=== PATIENT | male | born 1965 | race Caucasian/White ===

== ENCOUNTER 2016-12-02 17:47 | Emergency (ER) | payer OTHER ==
[~2016-12-02] VITALS: Ht 193 cm; Wt 100.0 kg
[~2016-12-02 17:47] MED LIST: ALPR1TAB3 PO; ATEN25TA PO; BACT800T5 PO; CEPH250C PO; CYAN1000P SQ; DEPA500T3 PO
[2016-12-02 17:52] VITALS: BP 131/86; PULSE 90; RESP 16; TEMP 97.7; O2SAT 96
== END 2016-12-02 20:32 | disposition left against medical advice (07) ==
LOC: NED 17:47
DX: R10.9 Unspecified abdominal pain (principal); Z53.21 Procedure and treatment not carried out due to patient leaving prior to being seen by health care provider
CPT/HCPCS: 99281

== ENCOUNTER 2016-12-03 12:27 | Inpatient (IN) | payer OTHER ==
[~2016-12-03] VITALS: Ht 193 cm; Wt 102.0 kg
[2016-12-03] VITALS (7 sets, daily range): BP systolic 93–140; BP diastolic 62–78; PULSE 74–118; RESP 15–18; TEMP 98.7; O2SAT 93–96
[2016-12-03] MEDS ORDERED: PIPERACIL-TAZO 4.5 GM PREMIX 100 ML IV STA (14:24)
[2016-12-03] MEDS ORDERED: ONDANSETRON HCL 4 MG/2 ML VIAL IV PUSH ONE (14:45)
[2016-12-03] MEDS ORDERED: HYDROmorphone HCL PF 1 MG/ML VIAL IV PUSH ONE (14:45)
[2016-12-03 15:00] LABS: BASOPHIL # 0.1 TH/MM3 (0-0.2); BASOPHIL % 0.6 % (0.0-2.0); EOSINOPHIL % 0.2 % (0.0-4.0); HEMATOCRIT 43.3 % (39.0-51.0); LYMPH % 14.2 % (9.0-44.0); LYMPHOCYTE # 2.2 TH/MM3 (1.0-4.8); MEAN CELL VOLUME 91.6 FL (80.0-100.0); MEAN CORPUSCULAR HEMOGLOBIN 31.1 PG (27.0-34.0); MEAN CORPUSCULAR HGB CONC 33.9 % (32.0-36.0); MONO % 7.7 % (0.0-8.0); NEUT % 77.3 % (16.0-70.0); PLATELET COUNT 203 TH/MM3 (150-450); RED BLOOD COUNT 4.73 MIL/MM3 (4.50-5.90); RED CELL DISTRIBUTION WIDTH 13.1 % (11.6-17.2); WHITE BLOOD COUNT 15.6 TH/MM3 (4.0-11.0)
[2016-12-03 15:03] LABS: HEMO FLAGS DIFF FINAL
[2016-12-03 15:20] LABS: ALT (GPT) 18 U/L (12-78); ANION GAP 5 MEQ/L (5-15); AST (GOT) 10 U/L (15-37); BICARBONATE 30.6 MEQ/L (21.0-32.0); BLOOD UREA NITROGEN 14 MG/DL (7-18); CHLORIDE 102 MEQ/L (98-107); GLOMERULAR FILTRATION RATE 50 ML/MIN (>89); POTASSIUM 4.6 MEQ/L (3.5-5.1); SODIUM (NA) 138 MEQ/L (136-145)
[2016-12-03 15:23] LABS: ALKALINE PHOSPHATASE 50 U/L (45-117); TOTAL BILIRUBIN ADULT 0.4 MG/DL (0.2-1.0)
--- NOTE | 2016-12-03 15:37 | PD ---
HPI Chief Complaint: Wound/Suture/Staple Re-Check Time Seen by Provider: 14:24 Travel History International Travel<30 days: No Contact w/Intl Traveler<30days: No Traveled to known affect area: No History of Present Illness HPI 51-year-old male with history of right inguinal hernia surgery by Dr. Robert on 11/05, presents to the ER today because he was sent in by Dr. Robert, has been having swelling in his right inguinal area where the surgery had been done, has serosanguineous fluid draining from it, apparently had been seen in clinic yesterday. His patient's states he has been having increased pain and has had fevers of 102 at home today. Modifying Factors: None Associated Signs & Symptoms: Right inguinal hernia repair, increased swelling, drainage, fevers Risk Factors: None PFSH Past Medical History Anxiety: Yes Cardiovascular Problems: Yes (htn) Cerebrovascular Accident: Yes (CVA 2009) Diminished Hearing: No Hypertension: Yes Seizures: Yes Influenza Vaccination: Yes Past Surgical History Abdominal Surgery: Yes (INGUINAL HERNIORRHAPHY x6) Appendectomy: Yes Genitourinary Surgery: Yes (ORCHIECTOMY) Other Surgery: Yes (TESTICULAR SX) Social History Alcohol Use: No Tobacco Use: No Substance Use: No Allergies-Medications (Allergen,Severity, Reaction): Coded Allergies: Toradol (Verified Allergy, Severe, 12/03/16) Codeine (Verified Allergy, Unknown, 12/03/16) Tramadol (Verified Allergy, Unknown, 12/03/16) Reported Meds & Prescriptions Reported Meds & Active Scripts Active Bactrim DS (Sulfamethoxazole-Trimethoprim) 800-160 Mg Tab 1 Tab PO BID Cephalexin 250 Mg Cap 500 Mg PO Q6H Take 500mg q6h by mouth for 10 days total Reported Depakote ER (Divalproex Sodium) 500 Mg Edyta 1,000 Mg PO BID Cyanocobalamin Inj (Cyanocobalamin) 1,000 Mcg/Ml Inj 1,000 Mcg SQ ON OF EA MONTH Cyanocobalamin Inj (Cyanocobalamin) 1,000 Mcg/Ml Inj 1,000 Mcg SQ 10TH OF EACH MONTH Cyanocobalamin Inj (Cyanocobalamin) 1,000 Mcg/Ml Inj 1,000 Mcg SQ 1ST OF EVERY MONTH Atenolol 25 Mg Tab 25 Mg PO BID Alprazolam 1 Mg Tab 2 Mg PO BID PRN Review of Systems Except as stated in HPI: all other systems reviewed are Neg Physical Exam Narrative GENERAL: Well-nourished, well-developed middle-aged white male patient in no acute distress at rest. SKIN: Warm and dry. HEAD: Normocephalic. EYES: No scleral icterus. No injection or drainage. NECK: Supple, trachea midline. CARDIOVASCULAR: Regular rate and rhythm without murmurs, gallops, or rubs. RESPIRATORY: Breath sounds equal bilaterally. No accessory muscle use. GASTROINTESTINAL: Abdomen soft, non-tender, nondistended. GENITOURINARY: There is significant edema and fluctuance notable at the right inguinal area extending to the right scrotum, notable serosanguineous fluid drainage from the right scrotum, tender to palpation. MUSCULOSKELETAL: No cyanosis, or edema. BACK: Nontender without obvious deformity. No CVA tenderness. Data Data Last Documented VS Vital Signs Date Time Temp Pulse Resp B/P Pulse Ox O2 Delivery O2 Flow Rate FiO2 12/03/16 14:35 16 94 Room Air 12/03/16 12:29 98.7 118 114/75 Orders Complete Blood Count With Diff (12/03/16 14:24) Comprehensive Metabolic Panel (12/03/16 14:24) Lactic Acid Sepsis Protocol (12/03/16 14:24) Blood Culture (12/03/16 14:24) Wound Culture And Gram Stain (12/03/16 14:24) Blood Glucose (12/03/16 14:24) Ecg Monitoring (12/03/16 14:24) Iv Access Insert/Monitor (12/03/16 14:24) Oximetry (12/03/16 14:24) Oxygen Administration (12/03/16 14:24) Piperacil-Tazo 4.5 Gm Premix (Zosyn 4.5 (12/03/16 14:24) Hydromorphone Pf Inj (Dilaudid Pf Inj) (12/03/16 14:45) Ondansetron Inj (Zofran Inj) (12/03/16 14:45) Admit Order (Ed Use Only) (12/03/16 15:16) Labs Laboratory Tests Test 12/03/16 14:30 White Blood Count 15.6 TH/MM3 Red Blood Count 4.73 MIL/MM3 Hemoglobin 14.7 GM/DL Hematocrit 43.3 % Mean Corpuscular Volume 91.6 FL Mean Corpuscular Hemoglobin 31.1 PG Mean Corpuscular Hemoglobin 33.9 % Concent Red Cell Distribution Width 13.1 % Platelet Count 203 TH/MM3 Mean Platelet Volume 8.6 FL Neutrophils (%) (Auto) 77.3 % Lymphocytes (%) (Auto) 14.2 % Monocytes (%) (Auto) 7.7 % Eosinophils (%) (Auto) 0.2 % Basophils (%) (Auto) 0.6 % Neutrophils # (Auto) 12.0 TH/MM3 Lymphocytes # (Auto) 2.2 TH/MM3 Monocytes # (Auto) 1.2 TH/MM3 Eosinophils # (Auto) 0.0 TH/MM3 Basophils # (Auto) 0.1 TH/MM3 CBC Comment DIFF FINAL Differential Comment Sodium Level 138 MEQ/L Potassium Level 4.6 MEQ/L Chloride Level 102 MEQ/L Carbon Dioxide Level 30.6 MEQ/L Anion Gap 5 MEQ/L Blood Urea Nitrogen 14 MG/DL Creatinine 1.48 MG/DL Estimat Glomerular Filtration 50 ML/MIN Rate Random Glucose 97 MG/DL Lactic Acid Level 1.0 mmol/L Calcium Level 9.0 MG/DL Total Bilirubin 0.4 MG/DL Aspartate Amino Transf 10 U/L (AST/SGOT) Alanine Aminotransferase 18 U/L (ALT/SGPT) Alkaline Phosphatase 50 U/L Total Protein 7.1 GM/DL Albumin 3.9 GM/DL MDM Medical Decision Making Medical Screen Exam Complete: Yes Emergency Medical Condition: Yes Medical Record Reviewed: Yes Interpretation(s) Laboratory Tests Test 12/03/16 14:30 White Blood Count 15.6 TH/MM3 (4.0-11.0) Neutrophils (%) (Auto) 77.3 % (16.0-70.0) Neutrophils # (Auto) 12.0 TH/MM3 (1.8-7.7) Monocytes # (Auto) 1.2 TH/MM3 (0-0.9) Creatinine 1.48 MG/DL (0.60-1.30) Estimat Glomerular Filtration 50 ML/MIN (>89) Rate Aspartate Amino Transf 10 U/L (15-37) (AST/SGOT) Differential Diagnosis Scrotal abscess versus hydrocele versus cellulitis Narrative Course Lab work shows significant leukocytosis. IV antibiotics were initiated after cultures were done. Case was discussed with Dr. Robert who states that the patient had ultrasound done 2 days ago at [facility] and would not suggest further imaging at this time. However, patient can be admitted to his service considering ongoing complaints by patient and regarding this pain and swelling. He states that he will see the patient after he gets out of the OR, keep the patient nothing by mouth. Diagnosis Primary Impression: Cellulitis of scrotum Admitting Information Admitting Physician Requests: Admit Sydni Gambino MD Dec 03, 2016 15:37
[2016-12-03] MEDS ORDERED: NALOXONE HCL 0.4 MG/ML AMP IV PRN (20:00)
[2016-12-03] MEDS ORDERED: Post-op Orders (for Pharmacy) MISC XX ONE (20:00)
[2016-12-03] MEDS ORDERED: SODIUM CHLORIDE 0.9% FLUSH 5 ML FLUSH IVF PRN (20:00)
[2016-12-03] MEDS: ACETAMINOPHEN 1000 MG/100 ML VIAL IV SCH (20:39)
[2016-12-03] MEDS: HYDROmorphone HCL PF 2 MG/ML VIAL IV PRN (20:39)
[2016-12-03] MEDS ORDERED: diphenhydrAMINE HCL 50 MG/ML VIAL IV PRN (21:00)
[2016-12-03] MEDS ORDERED: SENNOSIDES 8.6 MG TAB PO PRN (21:00)
[2016-12-03] MEDS ORDERED: hydrOXYzine HCL 25 MG TAB PO PRN (21:00)
[2016-12-03] MEDS: SODIUM CHLORIDE 0.9% FLUSH 5 ML FLUSH IVF SCH ×2 (21:00→22:20)
[2016-12-03] MEDS: PIPERACIL-TAZO 4.5 GM PREMIX 100 ML IV SCH (22:09)
[2016-12-03] MEDS: ENOXAPARIN SODIUM 40 MG/0.4 ML SYRINGE SQ SCH (22:09)
--- NOTE | 2016-12-03 23:20 | MH ---
cc: VENANCIO BRENNAN M.D. DATE OF ADMISSION 12/03/2016 REASON FOR ADMISSION Persistent pain and cellulitis of the scrotum, right side. HISTORY OF PRESENT ILLNESS The patient is a 51-year-old male who underwent right groin exploration and orchiectomy on November 05, 2016. The patient has had since that time some oozing from the scrotum and developed a cellulitis. He has been on antibiotics on and off for the last month. He is admitted today for persistent pain and drainage. The patient has failed outpatient therapy with p.o. antibiotics. The patient underwent ultrasound of the right scrotum prior to admission which demonstrated a small septated fluid collection in the scrotum. The patient's had reported a temperature as high as 102 prior to admission and the patient was advised to come to the hospital today. PAST MEDICAL HISTORY Significant for anxiety, hypertension, CVA in 2009, history of seizure disorder. PAST SURGERIES Includes inguinal hernia repair times six. History of appendectomy. SOCIAL HISTORY He does not drink or smoke or use other substances other than medications prescribed. ALLERGIES ALLERGIES TO PROBLEM WITH CODEINE AND SEIZURES WITH TRAMADOL. THE PATIENT STATES THAT HE CAN TAKE TORADOL OR KETOROLAC, HOWEVER. HOWEVER, THIS HAS BEEN LISTED AN ALLERGY NOW AND THE PATIENT IS UNABLE TO RECEIVE THIS MEDICATION FOR PAIN RELIEF AND PAIN CONTROL. MEDICATIONS Medications include: 1. Depakote ER 1000 milligrams b.i.d. 2. Atenolol 25 milligrams b.i.d. 3. Alprazolam 2 milligrams b.i.d. p.r.n. REVIEW OF SYSTEMS Negative except as indicated above. PHYSICAL EXAMINATION GENERAL: Exam reveals a male who is uncomfortable. VITAL SIGNS: Blood pressure 110/71, pulse 86, respirations 16, 95% saturation on room air. HEENT: Sclerae anicteric. Pupils reactive. CHEST: Chest is clear to auscultation. CARDIAC: Exam reveals a regular rate and rhythm. ABDOMEN: Soft, nontender. There is some induration in the right groin and minimal erythema in the right scrotum and some induration in the scrotum where the testicle was previously located. NEUROLOGIC: Exam is grossly nonfocal. LABORATORY FINDINGS WBCs 15.6, platelets normal 203,000. Chemistries are essentially within normal limits except for slightly elevated creatinine of 1.48. LFTs are essentially within normal limits. ASSESSMENT Cellulitis of the scrotum after orchiectomy with persistent pain and failed outpatient therapy. PLAN The patient has been started on IV Zosyn and will be given IV pain control. I have discussed this with the patient and his . We will recheck labs in the morning. MD ALE Carlos/MICHELL /10:58 PM /11:08 PM [email or web address]
[2016-12-04] MEDS: HYDROmorphone HCL PF 2 MG/ML VIAL IV PRN ×4 (00:09→19:48)
[2016-12-04 02:10] VITALS: BP 135/79; PULSE 101; RESP 18; TEMP 97.9; O2SAT 87
[2016-12-04] MEDS: ACETAMINOPHEN 1000 MG/100 ML VIAL IV SCH ×3 (03:12→15:19)
[2016-12-04] MEDS: PIPERACIL-TAZO 4.5 GM PREMIX 100 ML IV SCH ×4 (04:28→21:06)
[2016-12-04 08:11] VITALS: BP 93/54; PULSE 82; RESP 18; TEMP 98; O2SAT 94
[2016-12-04] MEDS: SODIUM CHLORIDE 0.9% FLUSH 5 ML FLUSH IVF SCH ×2 (08:58→19:49)
[2016-12-04] MEDS: ACETAMINOPHEN/HYDROcodone 325 MG/10 MG TAB PO PRN ×3 (09:23→17:28)
[2016-12-04] MEDS: ONDANSETRON HCL 4 MG/2 ML VIAL IV PRN ×2 (10:02→16:06)
[2016-12-04 12:21] LABS: BASOPHIL % 0.5 % (0.0-2.0); EOSINOPHIL # 0.1 TH/MM3 (0-0.4); EOSINOPHIL % 1.4 % (0.0-4.0); HEMATOCRIT 37.1 % (39.0-51.0); HEMO FLAGS DIFF FINAL; LYMPH % 27.4 % (9.0-44.0); LYMPHOCYTE # 1.8 TH/MM3 (1.0-4.8); MEAN CELL VOLUME 91.2 FL (80.0-100.0); MEAN CORPUSCULAR HEMOGLOBIN 31.4 PG (27.0-34.0); MEAN CORPUSCULAR HGB CONC 34.4 % (32.0-36.0); MONO % 10.2 % (0.0-8.0); NEUT % 60.5 % (16.0-70.0); PLATELET COUNT 139 TH/MM3 (150-450); RED BLOOD COUNT 4.06 MIL/MM3 (4.50-5.90); RED CELL DISTRIBUTION WIDTH 13.1 % (11.6-17.2); WHITE BLOOD COUNT 6.5 TH/MM3 (4.0-11.0)
[2016-12-04 12:54] VITALS: BP 121/61; PULSE 91; RESP 18; TEMP 97.8; O2SAT 96
[2016-12-04 15:33] VITALS: BP 122/69; PULSE 88; RESP 18; TEMP 98.3; O2SAT 97
--- NOTE | 2016-12-04 18:46 | HHI.PR ---
Subjective Subjective Notes Less pain today Objective Vitals/I&O Vital Signs Date Time Temp Pulse Resp B/P Pulse Ox O2 Delivery O2 Flow Rate FiO2 12/04/16 15:33 98.3 88 18 122/69 97 12/03/16 22:12 Room Air Labs Laboratory Tests Test 12/04/16 11:12 White Blood Count 6.5 Red Blood Count 4.06 Hemoglobin 12.8 Hematocrit 37.1 Mean Corpuscular Volume 91.2 Mean Corpuscular Hemoglobin 31.4 Mean Corpuscular Hemoglobin 34.4 Concent Red Cell Distribution Width 13.1 Platelet Count 139 Mean Platelet Volume 8.9 Neutrophils (%) (Auto) 60.5 Lymphocytes (%) (Auto) 27.4 Monocytes (%) (Auto) 10.2 Eosinophils (%) (Auto) 1.4 Basophils (%) (Auto) 0.5 Neutrophils # (Auto) 4.0 Lymphocytes # (Auto) 1.8 Monocytes # (Auto) 0.7 Eosinophils # (Auto) 0.1 Basophils # (Auto) 0.0 CBC Comment DIFF FINAL Differential Comment Date/Time Procedure Status Source Growth 12/03/16 19:30 Gram Stain - Final Resulted Wound Scrotum 12/03/16 19:30 Wound Culture - Preliminary Resulted Wound Scrotum 12/03/16 14:40 Aerobic Blood Culture - Preliminary Resulted Blood Peripheral NO GROWTH IN 1 DAY 12/03/16 14:40 Anaerobic Blood Culture - Preliminary Resulted Blood Peripheral NO GROWTH IN 1 DAY Lungs: Clear Abdomen: Non-distended Narrative Exam Right hemiscrotum stringer machine tender, but less so. Still with serous drainage A/P Assessment and Plan Cellulitis right scrotum, improved. Pain, better control Plan: Continue IV antibiotics 48 more hours, then home on PO meds. Restart Fentanyl patch. Evan Robert MD Dec 04, 2016 18:46
[2016-12-04] MEDS: ENOXAPARIN SODIUM 40 MG/0.4 ML SYRINGE SQ SCH (19:48)
[2016-12-04] MEDS: ATENOLOL 25 MG TAB PO SCH (19:49)
[2016-12-04] MEDS: DIVALPROEX SODIUM E.R. 500 MG TAB PO SCH (19:49)
[2016-12-04 20:00] VITALS: BP 120/75; PULSE 90; RESP 18; TEMP 98.3; O2SAT 95
[2016-12-04] MEDS: ALPRAZolam 1 MG TAB PO PRN (21:05)
[2016-12-05] VITALS: BP 111/74; PULSE 81; RESP 20; TEMP 98; O2SAT 96
[2016-12-05] MEDS: PIPERACIL-TAZO 4.5 GM PREMIX 100 ML IV SCH ×4 (05:43→21:04)
[2016-12-05 08:00] VITALS: BP 106/70; PULSE 78; RESP 16; TEMP 96.6; O2SAT 97
[2016-12-05] MEDS: ATENOLOL 25 MG TAB PO SCH ×2 (09:20→21:03)
[2016-12-05] MEDS: DIVALPROEX SODIUM E.R. 500 MG TAB PO SCH ×2 (09:20→21:03)
[2016-12-05] MEDS: SODIUM CHLORIDE 0.9% FLUSH 5 ML FLUSH IVF SCH ×2 (09:21→21:04)
[2016-12-05] MEDS: ACETAMINOPHEN/HYDROcodone 325 MG/10 MG TAB PO PRN ×3 (10:28→22:35)
[2016-12-05] MEDS: ALPRAZolam 1 MG TAB PO PRN ×2 (10:28→22:34)
[2016-12-05 12:00] VITALS: BP 101/59; PULSE 77; RESP 16; TEMP 97.9; O2SAT 95
--- NOTE | 2016-12-05 12:49 | HHI.PR ---
Subjective Subjective Notes Feels better, still sore, but less sore. Objective Vitals/I&O Vital Signs Date Time Temp Pulse Resp B/P Pulse Ox O2 Delivery O2 Flow Rate FiO2 12/05/16 12:00 97.9 77 16 101/59 95 12/03/16 22:12 Room Air Labs Date/Time Procedure Status Source Growth 12/03/16 19:30 Gram Stain - Final Complete Wound Scrotum 12/03/16 19:30 Wound Culture - Final Complete Wound Scrotum 12/03/16 14:40 Aerobic Blood Culture - Preliminary Resulted Blood Peripheral NO GROWTH IN 2 DAYS 12/03/16 14:40 Anaerobic Blood Culture - Preliminary Resulted Blood Peripheral NO GROWTH IN 2 DAYS Narrative Exam mild erythema, edema, tenderness R scrotum, improved per patient. A/P Assessment and Plan R scrotal cellulitis post R orchiectomy/ hernia repair. Continue abx. Dr Robert to see tomorrow, consider transition to oral abx. Israel Esparza MD Dec 05, 2016 12:49
[2016-12-05 16:00] VITALS: BP 108/67; PULSE 82; RESP 17; TEMP 96.5; O2SAT 94
[2016-12-05] MEDS: HYDROmorphone HCL PF 2 MG/ML VIAL IV PRN ×2 (17:22→21:03)
[2016-12-05 20:13] VITALS: BP 109/59; PULSE 72; RESP 18; TEMP 96.6; O2SAT 96
[2016-12-05] MEDS: ENOXAPARIN SODIUM 40 MG/0.4 ML SYRINGE SQ SCH (21:11)
[2016-12-05 23:36] VITALS: BP 124/59; PULSE 75; RESP 18; TEMP 97; O2SAT 96
[2016-12-06] MEDS: PIPERACIL-TAZO 4.5 GM PREMIX 100 ML IV SCH ×4 (04:42→21:50)
[2016-12-06] MEDS: ACETAMINOPHEN/HYDROcodone 325 MG/10 MG TAB PO PRN ×5 (04:43→21:48)
[2016-12-06 08:00] VITALS: BP 104/65; PULSE 62; RESP 16; TEMP 96.6; O2SAT 95
[2016-12-06] MEDS: DIVALPROEX SODIUM E.R. 500 MG TAB PO SCH ×2 (08:35→19:44)
[2016-12-06] MEDS: ATENOLOL 25 MG TAB PO SCH ×2 (08:35→19:43)
[2016-12-06] MEDS: SODIUM CHLORIDE 0.9% FLUSH 5 ML FLUSH IVF SCH ×2 (08:39→19:44)
--- NOTE | 2016-12-06 09:28 | HHI.PR ---
Subjective Subjective Notes Still painful, as expected Slept better last night No shaking chills Objective Vitals/I&O Vital Signs Date Time Temp Pulse Resp B/P Pulse Ox O2 Delivery O2 Flow Rate FiO2 12/06/16 08:00 96.6 62 16 104/65 95 12/03/16 22:12 Room Air Labs Date/Time Procedure Status Source Growth 12/03/16 19:30 Gram Stain - Final Complete Wound Scrotum 12/03/16 19:30 Wound Culture - Final Complete Wound Scrotum 12/03/16 14:40 Aerobic Blood Culture - Preliminary Resulted Blood Peripheral NO GROWTH IN 2 DAYS 12/03/16 14:40 Anaerobic Blood Culture - Preliminary Resulted Blood Peripheral NO GROWTH IN 2 DAYS Lungs: Clear Abdomen: Non-distended Narrative Exam Right hemiscrotum ammonia box tender, but less so. Erythema nearly resolved. Induration in groin and scrotum. Serous drainage minimal now. A/P Assessment and Plan Cellulitis right scrotum, nearly resolved. Pain, better control Plan: Continue IV antibiotics 48 more hours, then home on PO meds. Restart Fentanyl patch. Evan Robert MD Dec 06, 2016 09:27
[2016-12-06] MEDS ORDERED: fentaNYL 75 MCG/HR PATCH TD ONE (09:30)
[2016-12-06 12:00] VITALS: BP 123/75; PULSE 84; RESP 17; TEMP 96.8; O2SAT 98
[2016-12-06 16:00] VITALS: BP 119/60; PULSE 73; RESP 17; TEMP 97; O2SAT 95
[2016-12-06] MEDS: HYDROmorphone HCL PF 2 MG/ML VIAL IV PRN (19:43)
[2016-12-06 20:00] VITALS: BP 102/55; PULSE 77; RESP 18; TEMP 96.4; O2SAT 95
[2016-12-06] MEDS: ALPRAZolam 1 MG TAB PO PRN (21:47)
[2016-12-06] MEDS: ENOXAPARIN SODIUM 40 MG/0.4 ML SYRINGE SQ SCH (21:50)
[2016-12-07] VITALS: BP 111/54; PULSE 80; RESP 16; TEMP 96.4; O2SAT 97
[2016-12-07] MEDS: ACETAMINOPHEN/HYDROcodone 325 MG/10 MG TAB PO PRN ×2 (04:13→08:26)
[2016-12-07] MEDS: PIPERACIL-TAZO 4.5 GM PREMIX 100 ML IV SCH ×2 (04:13→08:27)
[2016-12-07 08:00] VITALS: BP 108/59; PULSE 67; RESP 18; TEMP 95.7; O2SAT 99
[2016-12-07] MEDS: ATENOLOL 25 MG TAB PO SCH (08:27)
[2016-12-07] MEDS: DIVALPROEX SODIUM E.R. 500 MG TAB PO SCH (08:27)
[2016-12-07] MEDS: SODIUM CHLORIDE 0.9% FLUSH 5 ML FLUSH IVF SCH (08:30)
[2016-12-07] MEDS: ALPRAZolam 1 MG TAB PO PRN (10:37)
[2016-12-07] MEDS ORDERED: AUGM875T PO (11:48)
--- NOTE | 2016-12-07 11:50 | HHI.DS ---
Discharge Summary Admission Date Dec 03, 2016 at 15:18 Admitting Diagnosis scrotal fluid collection/sepsis Brief History Patient admitted for IV antibiotics for scrotal cellulitis CBC/BMP: 12/04/16 1112 12/03/16 1430 PE at Discharge Right hemiscrotum grey tender, but less so. Erythema nearly resolved. Induration in groin and scrotum. Serous drainage minimal now. Hospital Course WBC's decreased to normal within one day; pain improved with fentanyl patch. Cellulitis greatly improved. Pt Condition on Discharge: Fair Discharge Instructions DIET: Follow Instructions for: As Tolerated, No Restrictions Activities you can perform: Regular-No Restrictions Activities to Avoid: Strenuous Activity Evan Robert MD Dec 07, 2016 11:50
[2016-12-07 12:00] VITALS: BP 147/56; PULSE 77; RESP 17; TEMP 95.6; O2SAT 97
[2016-12-07] MEDS ORDERED: HYDR-3366 PO (12:02)
[2016-12-07] MEDS ORDERED: PERC10TA27 PO (12:04)
== END 2016-12-07 12:52 | disposition home or self-care (01) | DRG 728 ==
LOC: NEPE 12:27 → NEDA 15:18 → NEDH 20:11 → N07B 12-04 22:16
PROVIDERS: ADMIT Surgery Trauma Surgery; ATTEND Surgery Trauma Surgery
DX: N49.2 Inflammatory disorders of scrotum (principal); I10 Essential (primary) hypertension; Z98.890 Other specified postprocedural states; Z90.79 Acquired absence of other genital organ(s); G40.909 Epilepsy, unspecified, not intractable, without status epilepticus; F41.9 Anxiety disorder, unspecified; Z86.73 Personal history of transient ischemic attack (TIA), and cerebral infarction without residual deficits
CPT/HCPCS: 80053; 82948; 83605; 85025; 86403; 87040; 87070; 87205; 94150; 99284; J0131; J1170; J1650; J2405; J2543

== ENCOUNTER 2016-12-18 14:21 | Inpatient (IN) | payer OTHER ==
[~2016-12-18] VITALS: Ht 190.5 cm; Wt 100.0 kg
[~2016-12-18 14:21] MED LIST changes: +AUGM875T PO; +HYDR-3366 PO; +PERC10TA27 PO
[2016-12-18 14:23] VITALS: BP 117/86; PULSE 95; RESP 15; TEMP 98.1; O2SAT 97
[2016-12-18] MEDS ORDERED: CLEO300C2 PO (16:20)
[2016-12-18] MEDS ORDERED: FENT75DI T-DERMAL (16:20)
[2016-12-18] MEDS ORDERED: AMPICILLIN-SULBACTAM INJ 3 GM in SODIUM CHLORIDE 0.9% INJ 100 ML IV ONE (17:00)
--- NOTE | 2016-12-18 17:06 | PD ---
HPI Chief Complaint: Fever Time Seen by Provider: 16:36 Travel History International Travel<30 days: No Contact w/Intl Traveler<30days: No Traveled to known affect area: No History of Present Illness HPI 51-year-old male complaining of fever, pain swelling right scrotum. Patient status post right groin exploration an orchiectomy November 05, 2016. Patient has recurrent infection to right scrotum since then. Patient was admitted for IV antibiotic and responded well with Unasyn IV recently. Patient was discharged home on Augmentin. Patient again has increasing redness swelling tenderness and fever for the past several days. Patient was seen by Dr. Robert yesterday in the office in given prescription for clindamycin. Patient states that the condition get worse since yesterday and the patient was advised by Dr. Robert to come in for admission.. Patient has history of hypertension. Patient states that he has orange discharge with blood from the right scrotum this morning. PFSH Past Medical History Anxiety: Yes Cardiovascular Problems: Yes (htn) Cerebrovascular Accident: Yes (CVA 2009) Diminished Hearing: No Hypertension: Yes Seizures: Yes Past Surgical History Abdominal Surgery: Yes (INGUINAL HERNIORRHAPHY x6) Appendectomy: Yes Genitourinary Surgery: Yes (ORCHIECTOMY) Other Surgery: Yes (TESTICULAR SX) Social History Alcohol Use: No Tobacco Use: No Substance Use: No Allergies-Medications (Allergen,Severity, Reaction): Coded Allergies: Toradol (Verified Allergy, Severe, 12/03/16) Codeine (Verified Allergy, Unknown, 12/03/16) Tramadol (Verified Allergy, Unknown, 12/03/16) Reported Meds & Prescriptions Reported Meds & Active Scripts Active Percocet (Oxycodone-Acetaminophen) 10-325 mg Tab 1-2 Tab PO Q4H PRN Reported Fentanyl Patch 72 HR (Fentanyl) 75 Mcg/Hr Patch 75 Mcg T-DERMAL Q72H Remove old patch when new one placed. Cleocin (Clindamycin HCl) 300 Mg Cap 300 Mg PO TID 10 Days Depakote ER (Divalproex Sodium) 500 Mg Edyta 1,000 Mg PO HS Cyanocobalamin Inj (Cyanocobalamin) 1,000 Mcg/Ml Inj 1,000 Mcg SQ THREE TIMES MONTHLY Give on the , the and the of each month Atenolol 25 Mg Tab 25 Mg PO HS Alprazolam 1 Mg Tab 2 Mg PO BID PRN Review of Systems General / Constitutional: No: Fever Eyes: No: Visual changes HENT: No: Headaches Cardiovascular: No: Chest Pain or Discomfort Respiratory: No: Shortness of Breath Gastrointestinal: No: Abdominal Pain Genitourinary: No: Dysuria Musculoskeletal: No: Pain Skin: No Rash Neurologic: No: Weakness Psychiatric: No: Depression Endocrine: No: Polydipsia Hematologic/Lymphatic: No: Easy Bruising Physical Exam Narrative GENERAL: Well-nourished, well-developed patient. SKIN: Warm and dry. HEAD: Normocephalic. EYES: No scleral icterus. No injection or drainage. NECK: Supple, trachea midline. No JVD or lymphadenopathy. CARDIOVASCULAR: Regular rate and rhythm without murmurs, gallops, or rubs. RESPIRATORY: Breath sounds equal bilaterally. No accessory muscle use. GASTROINTESTINAL: Abdomen soft, non-tender, nondistended. MUSCULOSKELETAL: No cyanosis, or edema. BACK: Nontender without obvious deformity. No CVA tenderness. exam: Patient has redness swelling tenderness right scrotum. No discharge. Neurologic exam normal. Data Data Last Documented VS Vital Signs Date Time Temp Pulse Resp B/P Pulse Ox O2 Delivery O2 Flow Rate FiO2 12/18/16 14:23 98.1 95 15 117/86 97 Orders Electrocardiogram (12/18/16 16:51) Complete Blood Count With Diff (12/18/16 16:51) Comprehensive Metabolic Panel (12/18/16 16:51) Prothrombin Time / Inr (Pt) (12/18/16 16:51) Act Partial Throm Time (Ptt) (12/18/16 16:51) Blood Culture (12/18/16 16:51) Chest, Single Ap (12/18/16 16:51) Iv Access Insert/Monitor (12/18/16 16:51) Ecg Monitoring (12/18/16 16:51) Oximetry (12/18/16 16:51) Ampicillin-Sulbactam Inj (Unasyn Inj) (12/18/16 17:00) Us Testicles W Doppler (12/18/16 16:55) Consult Urology (12/18/16 ) MDM Medical Decision Making Medical Screen Exam Complete: Yes Emergency Medical Condition: Yes Medical Record Reviewed: Yes Differential Diagnosis Differential diagnosis including cellulitis, abscess. Narrative Course 51-year-old male with pain swelling discharge from the right scrotum. Status post right orchectomy. Normal saline solution 1 25 cc an hour. Unasyn 3 g IV. Diagnosis Primary Impression: Cellulitis of scrotum Admitting Information Admitting Physician Requests: Admit Abdelrahman Sanz MD Dec 18, 2016 17:06
--- NOTE | 2016-12-18 17:18 | RADRPT ---
EXAM DATE/TIME: 12/18/2016 17:04 [facility] COMPARISON: CHEST SINGLE AP, July 31, 2016, 21:04. INDICATIONS : Short of Breath. MEDICAL HISTORY : Hypertension. Cerebrovascular disease. Seizures. SURGICAL HISTORY : Appendectomy. Inguinal Hernia Repair. ENCOUNTER: Initial ACUITY: 1 day PAIN SCORE: 0/10 LOCATION: Bilateral chest FINDINGS: A single view of the chest demonstrates the lungs to be symmetrically aerated without evidence of mas s, infiltrate or effusion. The cardiomediastinal contours are unremarkable. Osseous structures are intact. CONCLUSION: No acute disease. Jase Cloud MD FACR on December 18, 2016 at 17:16 Board Certified Radiologist. This report was verified electronically.
[2016-12-18 17:29] LABS: AUTOMATED NEUTROPHIL # 3.2 TH/MM3 (1.8-7.7); BASOPHIL % 0.6 % (0.0-2.0); EOSINOPHIL # 0.1 TH/MM3 (0-0.4); HEMATOCRIT 38.4 % (39.0-51.0); HEMO FLAGS DIFF FINAL; LYMPH % 39.1 % (9.0-44.0); LYMPHOCYTE # 2.5 TH/MM3 (1.0-4.8); MEAN CELL VOLUME 91.8 FL (80.0-100.0); MEAN CORPUSCULAR HEMOGLOBIN 32.2 PG (27.0-34.0); MEAN CORPUSCULAR HGB CONC 35.1 % (32.0-36.0); MONO % 8.7 % (0.0-8.0); NEUT % 50.6 % (16.0-70.0); PLATELET COUNT 162 TH/MM3 (150-450); RED BLOOD COUNT 4.19 MIL/MM3 (4.50-5.90); WHITE BLOOD COUNT 6.4 TH/MM3 (4.0-11.0)
[2016-12-18 17:36] LABS: APTT (PATIENT) 29.9 SEC (24.3-30.1); PROTHROMBIN TIME - PATIENT 10.5 SEC (9.8-11.6)
[2016-12-18] MEDS ORDERED: ONDANSETRON HCL 4 MG/2 ML VIAL IV PUSH PRN (17:45)
[2016-12-18] MEDS ORDERED: SODIUM CHLORIDE FLUSH PRN IVF (17:45)
[2016-12-18] MEDS: HYDROmorphone HCL PF 1 MG/ML VIAL IV PRN ×2 (17:50→21:16)
[2016-12-18 17:52] LABS: ANION GAP 12 MEQ/L (5-15); AST (GOT) 11 U/L (15-37); BICARBONATE 25.4 MEQ/L (21.0-32.0); BLOOD UREA NITROGEN 8 MG/DL (7-18); CHLORIDE 104 MEQ/L (98-107); GLOMERULAR FILTRATION RATE 63 ML/MIN (>89); POTASSIUM 3.9 MEQ/L (3.5-5.1); SODIUM (NA) 141 MEQ/L (136-145)
[2016-12-18 17:55] LABS: ALKALINE PHOSPHATASE 45 U/L (45-117); ALT (GPT) 16 U/L (12-78); TOTAL BILIRUBIN ADULT 0.1 MG/DL (0.2-1.0)
--- NOTE | 2016-12-18 19:18 | RADRPT ---
EXAM DATE/TIME: 12/18/2016 18:06 [facility] COMPARISON: No previous studies available for comparison. EXTERNAL COMPARISON : [facility], US TESTICLE, December 02, 2016[facility], US TESTICLE, August 11, 2016. INDICATIONS : Redness and pain in right scrotum. MEDICAL HISTORY : Hypertension. Cerebrovascular accident. Seizures. Anxiety. SURGICAL HISTORY : Appendectomy. Right orchiectomy. Inguinal hernia repair x 6. ENCOUNTER: Initial ACUITY: 3 days PAIN SCORE: 8/10 LOCATION: Bilateral scrotum. MEASUREMENTS: RIGHT TESTICLE: Surgically absent LEFT TESTICLE: 4.5 x 2.8 2.9 cm FINDINGS: The patient is status post previous right sided orchiectomy. There is a very complex septated fluid c ollection in the right hemiscrotum measuring up to 6.5 x 4.6 x 4.2 cm. Left testicle measures 4.8 x 2.8 x 2.9 cm. Left epididymis is unremarkable. Small left-sided hydrocel e. CONCLUSION: 1. Very complex septated fluid collection in the right hemiscrotum. Overall appearance is similar to an outside study from [facility] performed on December 02, 2016. Left testicle unremarkable. Small left hydrocele. Ramin Albert MD on December 18, 2016 at 19:10 Board Certified Radiologist. This report was verified electronically.
[2016-12-18] MEDS: D5-1/2 NS + KCL 20 MEQ INJ 1,000 ML IV SCH (19:25)
[2016-12-18 19:36] VITALS: BP 127/76; PULSE 75; RESP 18; O2SAT 99
[2016-12-18 19:38] VITALS: O2SAT 99
--- NOTE | 2016-12-18 20:10 | MH ---
cc: VENANCIO BRENNAN M.D. DATE OF ADMISSION: 12/18/2016 REASON FOR ADMISSION: Cellulitis, right scrotum. HISTORY OF PRESENT ILLNESS: The patient is a 51-year-old male who underwent a right groin exploration with mesh removal and orchiectomy November 05, 2016. The patient had cellulitis of the scrotum and was admitted recently for treatment with IV Unasyn. The patient had significant decrease in pain and redness and then was discharged home on p.o. Augmentin. He finished this two days ago and has since had increased pain and swelling with fever last night. Clindamycin was called in, but given the patient's previous history, he was advised to come to the emergency department for readmission. PAST MEDICAL HISTORY: Past medical history includes: 1. Hypertension. 2. History of seizures. 3. History of chronic pain. 4. The patient had a CVA in 2009. 5. He has a history of anxiety disorder. PAST SURGICAL HISTORY: 1. Inguinal herniorrhaphy x4 with mesh removal x1. 2. Triple neurectomy last year. 3. Appendectomy. SOCIAL HISTORY: He does not drink or smoke. ALLERGIES: 1. THE PATIENT HAS ALLERGY TO TRAMADOL - NOT TORADOL. HOWEVER, THIS KEEPS GETTING LISTED. 2. HE ALSO HAS A PROBLEM WITH CODEINE. MEDICATIONS: 1. The patient is currently on a Fentanyl Patch 75 micrograms per hour. 2. Percocet 10/325 as needed every 6 hours. 3. He just started on clindamycin. 4. He takes Depakote 500 milligrams p.o. twice a day. 5. Atenolol 25 milligrams p.o. at bedtime. 6. Alprazolam 1 milligram tabs, 2 milligrams p.o. twice a day PRN. REVIEW OF SYSTEMS: His review of systems is positive as indicated above. CONSTITUTIONAL: He does have a history of fever, no visual changes. HEAD, EYES, EARS, NOSE, THROAT: No headaches. CARDIOVASCULAR: No chest pain or discomfort. RESPIRATORY: No shortness of breath. GI: No abdominal pain. : No dysuria. MUSCULOSKELETAL: No pain except for as noted in the right groin and the scrotum. SKIN: Cellulitis and redness of the scrotum. NEUROLOGIC: No weakness or changes. PSYCHIATRIC: No depression, but a history of anxiety. ENDOCRINE: No polydipsia. HEMATOLOGIC: No easy bruising. PHYSICAL EXAMINATION: GENERAL: The physical exam reveals a male in good spirits. VITAL SIGNS: Blood pressure 117/86, pulse 95, respirations 15, temperature 98.1, 97% sat on room air. HEAD, EYES, EARS, NOSE, THROAT: Sclerae anicteric. CHEST: Clear to auscultation. CARDIAC: Cardiac exam reveals a regular rate and rhythm. ABDOMEN: Abdomen is soft. Pulses are intact. There is some induration of the tissue without erythema in the right groin along the inguinal canal. EXTERNAL GENITALI: In the scrotum for an area of approximately 6 x 9 cm, there is swelling with edema and erythema. The patient has minimal drainage in this area but he has reported previous drainage. The lower part of the scrotum is soft and nontender. The left manny-scrotum is unremarkable. EXTREMITIES: The patient is able to move all four extremities without difficulty. ASSESSMENT: Status post orchiectomy with right scrotal cellulitis and possible abscess. PLAN: 1. The patient will be admitted once again for IV antibiotics and he will undergo ultrasound. 2. Will obtain consultation with the urologist and see whether they feel any surgical intervention is warranted. 3. The patient will be made n.p.o. until the urologist sees the patient. If they feel no surgery is warranted, will allow the patient and continue IV antibiotics. MD ALE Carlos/MICHAEL /6:13 PM /8:01 PM
[2016-12-18] MEDS: ALPRAZolam 1 MG TAB PO PRN (20:17)
[2016-12-18] MEDS: ATENOLOL 25 MG TAB PO SCH (20:17)
[2016-12-18] MEDS: DIVALPROEX DR 500 MG TABEC PO SCH (20:24)
[2016-12-18] MEDS: SODIUM CHLORIDE FLUSH BID IVF SCH (21:00)
--- NOTE | 2016-12-18 21:33 | PD.CONS ---
HPI Service Urology Consult Requested By Reason for Consult Right Scrotal abscess/fluid collection Primary Care Physician Bear Cisneros MD Diagnosis: History of Present Illness 51 yo male with history of multiple right inguinal hernia repairs with history of right scrotal cellulitis now with persistent right scrotal swelling and pain. Patient had a right orchiectomy and inguinal hernia repair by Dr. Gutierrez and Dr. Robert on Nov 05, 2016. Patient has had an episode of right testicular pain and cellulitis successfully treated by IV antibiotics previously. He now returns to the ED with right scrotal swelling, pain, and concern for possible scrotal abscess. No fevers on admit. WBC normal. Review of Systems ROS Limitations: Clinical Condition Constitutional: DENIES: Fever Endocrine: DENIES: Polyuria Ears, nose, mouth, throat: DENIES: Hearing loss Respiratory: DENIES: Apneas Cardiovascular: DENIES: Chest pain Gastrointestinal: DENIES: Abdominal pain Genitourinary: COMPLAINS OF: Penile Discharge, Testicular Pain, Testicular Swelling, DENIES: Urgency, Hematuria, Dysuria Musculoskeletal: DENIES: Back pain Integumentary: DENIES: Rash Hematologic/lymphatic: COMPLAINS OF: Bruising Neurologic: DENIES: Headache Psychiatric: DENIES: Anxiety Past Family Social History Past Medical History HTN Anxiety Past Surgical History Multiple Right inguinal hernia repairs Appendectomy Reported Medications Reported Meds & Active Scripts Active Percocet (Oxycodone-Acetaminophen) 10-325 mg Tab 1-2 Tab PO Q4H PRN Reported Fentanyl Patch 72 HR (Fentanyl) 75 Mcg/Hr Patch 75 Mcg T-DERMAL Q72H Remove old patch when new one placed. Cleocin (Clindamycin HCl) 300 Mg Cap 300 Mg PO TID 10 Days Depakote ER (Divalproex Sodium) 500 Mg Edyta 1,000 Mg PO HS Cyanocobalamin Inj (Cyanocobalamin) 1,000 Mcg/Ml Inj 1,000 Mcg SQ THREE TIMES MONTHLY Give on the , the and the of each month Atenolol 25 Mg Tab 25 Mg PO HS Alprazolam 1 Mg Tab 2 Mg PO BID PRN Allergies: Coded Allergies: Cipro (Verified Allergy, Severe, 12/18/16) Toradol (Verified Allergy, Severe, 12/03/16) Codeine (Verified Allergy, Unknown, 12/03/16) Tramadol (Verified Allergy, Unknown, 12/03/16) Active Ordered Medications Current Medications Medications (Trade) Dose Ordered Sig/Isreal Route Start Time Stop Time Status Last Admin (D5-1/2 NS + KCl 20 Meq Inj) 1,000 ml @ 125 mls/hr Q8H IV 12/18/16 17:30 12/18/16 19:25 (NS Flush) 2 ml BID IVF 12/18/16 21:00 (NS Flush) 2 ml UNSCH PRN IVF 12/18/16 17:45 (Dilaudid Pf Inj) 1 mg Q3H PRN IV 12/18/16 17:45 12/18/16 17:50 (Zofran Inj) 4 mg Q6H PRN IV PUSH 12/18/16 17:45 12/18/16 17:50 (Depakote Dr) 500 mg BID PO 12/18/16 21:00 12/18/16 20:24 (Tenormin) 25 mg HS PO 12/18/16 21:00 12/18/16 20:17 (Duragesic 75 Mcg Patch.72 Hr) 1 patch Q3D TD 12/19/16 09:00 Miscellaneous Information 1 Q3D TD 12/22/16 09:00 (Xanax) 2 mg Q12H PRN PO 12/18/16 18:15 12/18/16 20:17 Family History Family history reviewed and noncontributory to present illness Social History No ETOH No Tobacco Physical Exam Vital Signs Vital Signs Date Time Temp Pulse Resp B/P Pulse Ox O2 Delivery O2 Flow Rate FiO2 12/18/16 19:38 99 Room Air 12/18/16 19:36 75 18 127/76 99 Room Air 12/18/16 18:20 18 12/18/16 14:23 98.1 95 15 117/86 97 Physical Exam GENERAL: This is a well-nourished, well-developed patient, in no apparent distress. SKIN: No rashes, ecchymoses or lesions. Cool and dry. HEAD: Atraumatic. Normocephalic. EYES: Extraocular motions intact. No scleral icterus. No injection or drainage. ENT: Nose without bleeding, purulent drainage. Airway patent. NECK: Trachea midline. CARDIOVASCULAR: extremities well perfused, normal pulses RESPIRATORY: nonlabored, equal chest rise GASTROINTESTINAL: Abdomen soft, non-tender, nondistended : Right inguinal incision noted with right scrotal swelling. Nontender to palpation, fluid filled right scrotal sac, no drainage noted, no erythema. No identifiable scrotal wall abscess. Appears to have a complex fluid filled sac within the scrotum, unclear if infected MUSCULOSKELETAL: Extremities without clubbing, cyanosis, or edema. NEUROLOGICAL: Awake and alert. Motor and sensory grossly within normal limits. Normal speech. Laboratory Laboratory Tests Test 12/18/16 16:45 White Blood Count 6.4 Red Blood Count 4.19 Hemoglobin 13.5 Hematocrit 38.4 Mean Corpuscular Volume 91.8 Mean Corpuscular Hemoglobin 32.2 Mean Corpuscular Hemoglobin 35.1 Concent Red Cell Distribution Width 13.0 Platelet Count 162 Mean Platelet Volume 9.0 Neutrophils (%) (Auto) 50.6 Lymphocytes (%) (Auto) 39.1 Monocytes (%) (Auto) 8.7 Eosinophils (%) (Auto) 1.0 Basophils (%) (Auto) 0.6 Neutrophils # (Auto) 3.2 Lymphocytes # (Auto) 2.5 Monocytes # (Auto) 0.6 Eosinophils # (Auto) 0.1 Basophils # (Auto) 0.0 CBC Comment DIFF FINAL Differential Comment Prothrombin Time 10.5 Prothromb Time International 1.0 Ratio Activated Partial 29.9 Thromboplast Time Sodium Level 141 Potassium Level 3.9 Chloride Level 104 Carbon Dioxide Level 25.4 Anion Gap 12 Blood Urea Nitrogen 8 Creatinine 1.20 Estimat Glomerular Filtration 63 Rate Random Glucose 111 Calcium Level 8.1 Total Bilirubin 0.1 Aspartate Amino Transf 11 (AST/SGOT) Alanine Aminotransferase 16 (ALT/SGPT) Alkaline Phosphatase 45 Total Protein 6.6 Albumin 3.4 Date/Time Procedure Status Source Growth 12/18/16 17:00 Aerobic Blood Culture Received Blood Peripheral Pending 12/18/16 17:00 Anaerobic Blood Culture Received Blood Peripheral Pending Result Diagram: 12/18/16 1645 12/18/16 1645 Imaging Last 72 hours Impressions Scrotum Ultrasound 12/18/165 Signed Impressions: Service Date/Time: Sunday, December 18, 2016 18:06 - CONCLUSION: 1. Very complex septated fluid collection in the right hemiscrotum. Overall appearance is similar to an outside study from [place] performed on December 02, 2016. Left testicle unremarkable. Small left hydrocele. Ramin Albert MD Chest X-Ray 12/18/16 1651 Signed Impressions: Service Date/Time: Sunday, December 18, 2016 17:04 - CONCLUSION: No acute disease. Jase Cloud MD FACR Assessment and Plan Problem List: (1) Cellulitis of scrotum ICD Code: N49.2 Status: Acute Assessment and Plan -Reviewed scrotal ultrasound in detail. The fluid within the right scrotum appears to be without any debris, however is septated. No obvious inflammation noted on ultrasound or physical exam to indicate infection. WBC is normal and patient is without fevers. -It appears the patient has a complex fluid collection within the right hemiscrotum occupying the space of the previous right testicle. This may be a hydrocele with septated fluid collection. No clear evidence of infection. -At this time, any drainable abscess is not clearly identified. The septated fluid may be infected, however physical exam, ultrasound, and overall clinical picture does not clearly suggest this. Patient appears to be having discomfort from the presence of this fluid, however no tenderness noted on exam, no drainage, no evidence of mariia's gangrene. -Recommend continued observation at this point. Surgical intervention may result in infection. If his clinical picture worsens, may consider excision, however this may recur. -Discussed with the patient. Will discuss with Dr. Robert. -No immediate surgical intervention at this time, patient may resume diet. Cain Pete MD Dec 18, 2016 21:32
[2016-12-18 21:51] VITALS: BP 119/61; PULSE 69; RESP 20; TEMP 98.4; O2SAT 96
[2016-12-18 23:41] VITALS: BP 120/60; PULSE 68; RESP 20; TEMP 98.4; O2SAT 96
[2016-12-19] VITALS (7 sets, daily range): BP systolic 101–121; BP diastolic 54–66; PULSE 63–89; RESP 20; TEMP 95.9–98.1; O2SAT 95–100
[2016-12-19] MEDS: HYDROmorphone HCL PF 1 MG/ML VIAL IV PRN ×5 (02:44→23:29)
[2016-12-19] MEDS: D5-1/2 NS + KCL 20 MEQ INJ 1,000 ML IV SCH ×3 (02:45→20:09)
[2016-12-19] MEDS: ALPRAZolam 1 MG TAB PO PRN ×2 (08:39→21:14)
[2016-12-19] MEDS: DIVALPROEX DR 500 MG TABEC PO SCH ×2 (08:40→21:00)
[2016-12-19] MEDS: fentaNYL 75 MCG/HR PATCH TD SCH (08:41)
[2016-12-19] MEDS: SODIUM CHLORIDE FLUSH BID IVF SCH ×2 (08:42→21:04)
[2016-12-19] MEDS: CLINDAMYCIN 600 MG/NS 100 ML IV SCH ×4 (10:59→18:21)
[2016-12-19] MEDS: ATENOLOL 25 MG TAB PO SCH (21:00)
[2016-12-20] MEDS: CLINDAMYCIN 600 MG/NS 100 ML IV SCH ×6 (01:28→18:40)
[2016-12-20 04:00] VITALS: BP 128/69; PULSE 78; RESP 20; TEMP 98.6; O2SAT 95
[2016-12-20 06:17] VITALS: BP 123/57
[2016-12-20] MEDS: HYDROmorphone HCL PF 1 MG/ML VIAL IV PRN ×3 (06:50→20:10)
[2016-12-20 08:30] VITALS: BP 128/60; PULSE 76; RESP 18; TEMP 97.5; O2SAT 98
[2016-12-20] MEDS: SODIUM CHLORIDE FLUSH BID IVF SCH ×2 (08:45→20:09)
[2016-12-20] MEDS: DIVALPROEX DR 500 MG TABEC PO SCH ×2 (08:45→20:08)
[2016-12-20] MEDS: D5-1/2 NS + KCL 20 MEQ INJ 1,000 ML IV SCH ×3 (09:00→17:30)
[2016-12-20] MEDS: ALPRAZolam 1 MG TAB PO PRN ×2 (10:37→22:17)
--- NOTE | 2016-12-20 11:52 | HHI.PR ---
Subjective Remarks No changes overnight. Pain controlled. No fevers. Objective Vital Signs Vital Signs Date Time Temp Pulse Resp B/P Pulse Ox O2 Delivery O2 Flow Rate FiO2 12/20/16 08:30 97.5 76 18 128/60 98 12/20/16 06:17 123/57 12/20/16 04:00 98.6 78 20 128/69 95 12/19/16 23:15 97.6 89 20 121/59 100 12/19/16 19:22 97.6 81 20 109/55 98 12/19/16 17:40 106/66 12/19/16 16:00 96.3 70 20 102/54 98 12/19/16 13:52 12 12/19/16 12:00 95.9 70 20 107/57 96 I/O 12/19/16 12/19/16 12/19/16 12/20/16 12/20/16 12/20/16 07:00 15:00 23:00 07:00 15:00 23:00 Intake Total 2800 ml Output Total 400 ml 800 ml Balance -400 ml 2800 ml -800 ml Intake IV Total 2800 ml Output Urine Total 400 ml 800 ml Result Diagram: 12/18/16 1645 12/18/16 1645 Imaging Last 72 hours Impressions Scrotum Ultrasound 12/18/16 1655 Signed Impressions: Service Date/Time: Sunday, December 18, 2016 18:06 - CONCLUSION: 1. Very complex septated fluid collection in the right hemiscrotum. Overall appearance is similar to an outside study from [place] performed on December 02, 2016. Left testicle unremarkable. Small left hydrocele. Ramin Albert MD Chest X-Ray 12/18/16 1651 Signed Impressions: Service Date/Time: Sunday, December 18, 2016 17:04 - CONCLUSION: No acute disease. Jase Cloud MD FACR Objective Remarks Right hemiscrotum with fluid filled sac, nontender, no drainage noted, minimal to no erythema Assessment and Plan Problem List: (1) Cellulitis of scrotum ICD Code: N49.2 Status: Acute Assessment and Plan -Likely post-surgical process with no infection -Will await Infectious disease consult Cain Pete MD Dec 20, 2016 11:52
[2016-12-20 12:08] VITALS: BP 135/63; PULSE 86; RESP 18; TEMP 96.5; O2SAT 93
--- NOTE | 2016-12-20 15:02 | PD.ID.CON ---
History of Present Illness Service ID Consult Requested By Reason for Consult Evaluation and Mment of Scrotal abscess/cellulitis. Primary Care Physician Bear Cisneros MD Diagnoses: History of Present Illness is a 51 y/o CM with PMHx of CVA, seizure disorder, multiple inguinal hernia repairs, h/o persistent scrotal cellulitisn treated with multiple rounds of antibiotics. He now presents with right scrotal pain and swelling associated with fevers off and on prior to arrival. Patient had a right orchiectomy and inguinal hernia repair by Dr. Gutierrez and Dr. Robert on Nov 05, 2016. Patient has had an episode of right testicular pain and cellulitis successfully treated by IV Unasyn and then discharged on Oral augmentin. He reports he also has been on Bactrim and more recently Clindamycin. He now returns to the ED with right scrotal swelling, pain, and concern for possible scrotal abscess. No fevers on admit although reports he had fevers before admission. WBC normal but of note this pt has been treated with multiple rounds of antibiotics. Patient reports no local discharge. He reports erythema in right hemiscrotum associated with discharge in past. He also reports he gets white lesions suggestive of superimposed fungal infection such as Nimo. He has been using Nystatin with Triamcinolone cream for local application. I discouraged him to use this formulation in presence of infection. I recommended plain Nystatin instead. No night sweats He reports no abd pain or N/V. He reports difficulty walking due to the hard induration and swelling of right scrotum. ID consulted for evaluation and Mment of Right hemiscrotum possible abscess ( likely loculated hence relapses after stopping antibiotics). Review of Systems Constitutional: COMPLAINS OF: Fever, Chills, DENIES: Diaphoretic episodes, Fatigue, Weight gain, Weight loss, Dizziness, Change in appetite, Night Sweats Endocrine: DENIES: Heat/cold intolerance, Polydipsia, Polyuria, Polyphagia Eyes: DENIES: Blurred vision, Diplopia, Eye inflammation, Eye pain, Vision loss , Photosensitivity, Double Vision Ears, nose, mouth, throat: DENIES: Tinnitus, Hearing loss, Vertigo, Nasal discharge, Oral lesions, Throat pain, Hoarseness, Ear Pain, Running Nose, Epistaxis, Sinus Pain, Toothache, Odynophagia Respiratory: DENIES: Apneas, Cough, Snoring, Wheezing, Hemoptysis, Sputum production, Shortness of breath Cardiovascular: DENIES: Chest pain, Palpitations, Syncope, Dyspnea on Exertion , PND, Lower Extremity Edema, Orthopnea, Claudication Gastrointestinal: DENIES: Abdominal pain, Black stools, Bloody stools, Constipation, Diarrhea, Nausea, Vomiting, Difficulty Swallowing, Anorexia Genitourinary: COMPLAINS OF: Testicular Swelling, DENIES: Sexual dysfunction, Urinary frequency, Urinary incontinence, Urgency, Hematuria, Dysuria, Nocturia, Penile Discharge, Testicular Pain Musculoskeletal: DENIES: Joint pain, Muscle aches, Stiffness, Joint Swelling, Back pain, Neck pain Integumentary: DENIES: Abnormal pigmentation, Nail changes, Pruritus, Rash Hematologic/lymphatic: DENIES: Bruising, Lymphadenopathy Immunologic/allergic: DENIES: Eczema, Urticaria Neurologic: DENIES: Abnormal gait, Headache, Localized weakness, Paresthesias, Seizures, Speech Problems, Tremor, Poor Balance Psychiatric: DENIES: Anxiety, Confusion, Mood changes, Depression, Hallucinations, Agitation, Suicidal Ideation, Homicidal Ideation, Delusions Past Family Social History Allergies: Coded Allergies: Cipro (Verified Allergy, Severe, 12/18/16) Toradol (Verified Allergy, Severe, 12/03/16) Codeine (Verified Allergy, Unknown, 12/03/16) Tramadol (Verified Allergy, Unknown, 12/03/16) Past Medical History HTN Anxiety Past Surgical History Multiple Right inguinal hernia repairs Appendectomy Reported Medications Reported Meds & Active Scripts Active Percocet (Oxycodone-Acetaminophen) 10-325 mg Tab 1-2 Tab PO Q4H PRN Reported Fentanyl Patch 72 HR (Fentanyl) 75 Mcg/Hr Patch 75 Mcg T-DERMAL Q72H Remove old patch when new one placed. Cleocin (Clindamycin HCl) 300 Mg Cap 300 Mg PO TID 10 Days Depakote ER (Divalproex Sodium) 500 Mg Edyta 1,000 Mg PO HS Cyanocobalamin Inj (Cyanocobalamin) 1,000 Mcg/Ml Inj 1,000 Mcg SQ THREE TIMES MONTHLY Give on the , the and the of each month Atenolol 25 Mg Tab 25 Mg PO HS Alprazolam 1 Mg Tab 2 Mg PO BID PRN Active Ordered Medications Current Medications Medications (Trade) Dose Ordered Sig/Isreal Route Start Time Stop Time Status Last Admin (D5-/2 NS + KCl 20 Meq Inj) 1,000 ml @ 125 mls/hr Q8H IV 12/18/16 17:30 12/20/16 09:30 (NS Flush) 2 ml BID IVF 12/18/16 21:00 12/20/16 08:45 (NS Flush) 2 ml UNSCH PRN IVF 12/18/16 17:45 (Dilaudid Pf Inj) 1 mg Q3H PRN IV 12/18/16 17:45 12/20/16 13:50 (Zofran Inj) 4 mg Q6H PRN IV PUSH 12/18/16 17:45 12/18/16 17:50 (Depakote Dr) 500 mg BID PO 12/18/16 21:00 12/20/16 08:45 (Tenormin) 25 mg HS PO 12/18/16 21:00 12/18/16 20:17 (Duragesic 75 Mcg Patch.72 Hr) 1 patch Q3D TD 12/19/16 09:00 12/19/16 08:41 Miscellaneous Information 1 Q3D TD 12/22/16 09:00 Alprazolam 2 mg 2 mg Q12H PRN PO 12/18/16 18:15 12/20/16 10:37 (Cleocin Inj/NS Inj) 104 ml @ 208 mls/hr Q8H IV 12/19/16 10:00 12/20/16 10:18 Family History reviewed and NC to current problem. Social History reviewed. No alcohol, No smoking, No IVDA. Physical Exam Vital Signs Vital Signs Date Time Temp Pulse Resp B/P Pulse Ox O2 Delivery O2 Flow Rate FiO2 12/20/16 12:08 96.5 86 18 135/63 93 12/20/16 08:30 97.5 76 18 128/60 98 12/20/16 06:17 123/57 12/20/16 04:00 98.6 78 20 128/69 95 12/19/16 23:15 97.6 89 20 121/59 100 12/19/16 19:22 97.6 81 20 109/55 98 12/19/16 17:40 106/66 12/19/16 16:00 96.3 70 20 102/54 98 Physical Exam GENERAL: This is a well-nourished, well-developed patient, in no apparent distress. SKIN: No rashes, ecchymoses or lesions. Cool and dry. HEAD: Atraumatic. Normocephalic. No temporal or scalp tenderness. EYES: Pupils equal round and reactive. Extraocular motions intact. No scleral icterus. No injection or drainage. ENT: Nose without bleeding, purulent drainage or septal hematoma. Throat without erythema, tonsillar hypertrophy or exudate. Uvula midline. Airway patent. NECK: Trachea midline. No JVD or lymphadenopathy. Supple, nontender, no meningeal signs. CARDIOVASCULAR: HS audible. RESPIRATORY: Clear to auscultation. Breath sounds equal bilaterally. No wheezes , rales, or rhonchi. GASTROINTESTINAL: Abdomen soft, non-tender, nondistended. MUSCULOSKELETAL: Extremities without clubbing, cyanosis, or edema. No joint tenderness, effusion, or edema noted. No calf tenderness. Negative Homans sign bilaterally. Right inguinal area with 2 linear scars. Under the scars woody hardness and, tenderness noted. This extends down to the scrotal sac. In the right scrotal sac there was again induration noted with varying degrees of hardness. Right scrotal sac with no visible testicle as on other side. Rather on superior aspect of scrotal sac starts an area of induration and tenderness. There was minimal if any erythema (patient tends to manipulate the area with his hands several times as witnessed by me and RN). There was tenderness noted in the area as well. NEUROLOGICAL: Awake and alert. Grossly non focal Psych: cooperative IV line sites with no e/o infection. Laboratory Date/Time Procedure Status Source Growth 12/18/16 17:00 Aerobic Blood Culture - Preliminary Resulted Blood Peripheral NO GROWTH IN 2 DAYS 12/18/16 17:00 Anaerobic Blood Culture - Preliminary Resulted Blood Peripheral NO GROWTH IN 2 DAYS Result Diagram: 12/18/16 1645 12/18/16 1645 Imaging Last Impressions Scrotum Ultrasound 12/18/161654 Signed Impressions: Service Date/Time: Sunday, December 18, 2016 18:06 - CONCLUSION: 1. Very complex septated fluid collection in the right hemiscrotum. Overall appearance is similar to an outside study from [place] performed on December 02, 2016. Left testicle unremarkable. Small left hydrocele. Ramin Albert MD Chest X-Ray 12/18/161650 Signed Impressions: Service Date/Time: Sunday, December 18, 2016 17:04 - CONCLUSION: No acute disease. Jase Cloud MD FACR Assessment and Plan Assessment and Plan Scrotal abscess possible. Patient has been treated with multiple rounds of different antibiotics (Bactrim, Augmentin, Clinda) so this could be a partially treated abscess and hence not exhibiting the typical signs and symptoms as with untreated infection. Reason for non response could be areas of loculated infections. The amount of induration, tenderness and intermittent fevers when off antibiotics is concerning for infection. s/p right groin exploration with mesh removal and orchiectomy November 05, 2016. Seizure disorder CVA Multiple Right groin surgeries. Recs: Continue Clindamycin IV Will not change regimen. Would like to discuss with surgeons about plan for surgical debridement before I change antibiotic regimen. Will also check CRP to assess the infection and inflammatory response. dw patient and . The RN for the patient was my auto electrical technician during my visit. Katelyn Nathan MD Dec 20, 2016 15:02
[2016-12-20 15:48] VITALS: BP 133/63; PULSE 77; RESP 20; TEMP 98.2; O2SAT 95
[2016-12-20 20:00] VITALS: BP 115/61; PULSE 93; RESP 18; TEMP 97.8; O2SAT 96
[2016-12-20] MEDS: ATENOLOL 25 MG TAB PO SCH (20:09)
[2016-12-21] MEDS: HYDROmorphone HCL PF 1 MG/ML VIAL IV PRN ×5 (00:48→21:33)
[2016-12-21 00:52] VITALS: BP 141/67; PULSE 100; RESP 20; TEMP 98; O2SAT 20
[2016-12-21] MEDS: D5-1/2 NS + KCL 20 MEQ INJ 1,000 ML IV SCH ×3 (01:30→17:06)
[2016-12-21] MEDS: CLINDAMYCIN 600 MG/NS 100 ML IV SCH ×6 (01:45→17:32)
[2016-12-21 05:35] VITALS: BP 122/72; PULSE 88; RESP 20; TEMP 98.1; O2SAT 97
[2016-12-21 07:36] VITALS: BP 119/66; PULSE 87; RESP 18; TEMP 97.6; O2SAT 97
[2016-12-21] MEDS: DIVALPROEX DR 500 MG TABEC PO SCH ×2 (08:30→21:32)
[2016-12-21] MEDS: SODIUM CHLORIDE FLUSH BID IVF SCH ×2 (08:30→21:32)
[2016-12-21] MEDS: ALPRAZolam 1 MG TAB PO PRN ×2 (10:07→21:33)
--- NOTE | 2016-12-21 11:23 | HHI.IDPN ---
Subjective Subjective Remarks is a 51 y/o CM with PMHx of CVA, seizure disorder, multiple inguinal hernia repairs, h/o persistent scrotal cellulitisn treated with multiple rounds of antibiotics. He now presents with right scrotal pain and swelling associated with fevers off and on prior to arrival. Patient had a right orchiectomy and inguinal hernia repair by Dr. Gutierrez and Dr. Robert on Nov 05, 2016. Patient reports fevers 101 F prior to admission. Overnight events reviewed Patient reports his scrotal sac redness and pain increased. No fevers No rash No diarrhea Antibiotics Clinda IV Lines Line sites with no e/o infection Past Medical History reviewed Allergies: Coded Allergies: Cipro (Verified Allergy, Severe, 12/18/16) Toradol (Verified Allergy, Severe, 12/03/16) Codeine (Verified Allergy, Unknown, 12/03/16) Tramadol (Verified Allergy, Unknown, 12/03/16) Objective . Vital Signs Date Time Temp Pulse Resp B/P Pulse Ox O2 Delivery O2 Flow Rate FiO2 12/21/16 07:36 97.6 87 18 119/66 97 12/21/16 05:35 98.1 88 20 122/72 97 12/21/16 00:52 98.0 100 20 141/67 20 12/20/16 20:00 97.8 93 18 115/61 96 12/20/16 15:48 98.2 77 20 133/63 95 12/20/16 14:22 16 12/20/16 12:08 96.5 86 18 135/63 93 12/20/16 12/20/16 12/21/16 15:00 23:00 07:00 Intake Total 457 ml Balance 457 ml Intake IV Total 457 ml . Laboratory Tests Test 12/20/16 16:24 C-Reactive Protein 0.99 MG/DL Microbiology Date/Time Procedure Status Source Growth 12/18/16 16:45 Aerobic Blood Culture - Preliminary Resulted Blood Peripheral NO GROWTH IN 3 DAYS 12/18/16 16:45 Anaerobic Blood Culture - Preliminary Resulted Blood Peripheral NO GROWTH IN 3 DAYS 12/18/16 17:00 Aerobic Blood Culture - Preliminary Resulted Blood Peripheral NO GROWTH IN 3 DAYS 12/18/16 17:00 Anaerobic Blood Culture - Preliminary Resulted Blood Peripheral NO GROWTH IN 3 DAYS Imaging Last Impressions Scrotum Ultrasound 12/18/16 1655 Signed Impressions: Service Date/Time: Sunday, December 18, 2016 18:06 - CONCLUSION: 1. Very complex septated fluid collection in the right hemiscrotum. Overall appearance is similar to an outside study from [place] performed on December 02, 2016. Left testicle unremarkable. Small left hydrocele. Ramin Albert MD Chest X-Ray 12/18/16 1651 Signed Impressions: Service Date/Time: Sunday, December 18, 2016 17:04 - CONCLUSION: No acute disease. Jase Cloud MD FACR Physical Exam GENERAL: This is a well-nourished, well-developed patient, in no apparent distress. SKIN: No rashes, ecchymoses or lesions. Cool and dry. HEAD: Atraumatic. Normocephalic. No temporal or scalp tenderness. EYES: Pupils equal round and reactive. Extraocular motions intact. No scleral icterus. No injection or drainage. ENT: Nose without bleeding, purulent drainage or septal hematoma. Throat without erythema, tonsillar hypertrophy or exudate. Uvula midline. Airway patent. NECK: Trachea midline. No JVD or lymphadenopathy. Supple, nontender, no meningeal signs. CARDIOVASCULAR: HS audible. RESPIRATORY: Clear to auscultation. Breath sounds equal bilaterally. No wheezes , rales, or rhonchi. GASTROINTESTINAL: Abdomen soft, non-tender, nondistended. MUSCULOSKELETAL: Extremities without clubbing, cyanosis, or edema. No joint tenderness, effusion, or edema noted. No calf tenderness. Negative Homans sign bilaterally. Right inguinal area with 2 linear scars. Under the scars woody hardness and, tenderness noted. This extends down to the scrotal sac. In the right scrotal sac there was again induration noted with varying degrees of hardness. Right scrotal sac with no visible testicle as on other side. Rather on superior aspect of scrotal sac starts an area of induration and tenderness. There was minimal if any erythema (patient tends to manipulate the area with his hands several times as witnessed by me and RN). There was tenderness noted in the area as well. NEUROLOGICAL: Awake and alert. Grossly non focal Psych: cooperative IV line sites with no e/o infection. Assessment & Plan Remarks Scrotal abscess possible. Patient has been treated with multiple rounds of different antibiotics (Bactrim, Augmentin, Clinda) so this could be a partially treated abscess and hence not exhibiting the typical signs and symptoms as with untreated infection. Reason for non response could be areas of loculated infections. The amount of induration, tenderness and intermittent fevers he describes when off antibiotics is concerning for infection. s/p right groin exploration with mesh removal and orchiectomy November 05, 2016. Seizure disorder CVA Multiple Right groin surgeries. Recs: Continue Clindamycin IV Will not change regimen. Would like to discuss with surgeons about plan for surgical debridement before I change antibiotic regimen. CRP is minimally elevated but keep in mind multiple antibiotics and partially treated at this point. dw patient. d/w PA for General surgery: pt kept NPO till seen by surgeons and reevaluated. The RN for the patient was my managed services consultant during my visit. Katelyn Nathan MD Dec 21, 2016 11:23
[2016-12-21 12:04] VITALS: BP 107/71; PULSE 94; RESP 14; TEMP 97.8; O2SAT 99
--- NOTE | 2016-12-21 12:26 | HHI.PR ---
Subjective Subjective Notes Still painful Objective Vitals/I&O Vital Signs Date Time Temp Pulse Resp B/P Pulse Ox O2 Delivery O2 Flow Rate FiO2 12/21/16 12:04 97.8 94 14 107/71 99 12/18/16 19:38 Room Air Labs Laboratory Tests Test 12/20/16 16:24 C-Reactive Protein 0.99 Date/Time Procedure Status Source Growth 12/18/16 17:00 Aerobic Blood Culture - Preliminary Resulted Blood Peripheral NO GROWTH IN 3 DAYS 12/18/16 17:00 Anaerobic Blood Culture - Preliminary Resulted Blood Peripheral NO GROWTH IN 3 DAYS Lungs: Clear Abdomen: Non-distended Narrative Exam Right scrotum less swollen and less erythematous Minimal serous drainage A/P Assessment and Plan Cellulitis RIGHT scrotum with septated hydrocele. Plan: Continue antibiotic; discussed with Dr. Nathan; will try Cipro under observation Have urologist see patient; unlikely to proceed to surgery at this time. Evan Robert MD Dec 21, 2016 12:26
--- NOTE | 2016-12-21 15:28 | HHI.PR ---
Addendum to Inpatient Note Addendum Reason: Additional Documentation Additional Information D/w : no plans for surgery at present time. D.w patients : patients reaction to cipro was hallucination. Unsure if related to Cipro or other polypharmacy meds he is on. D/w alternative pseudomonal coverage is IV and since risk of infection is low (low CRP and not much clinical evidence of infection) would like to avoid IV antibiotics. I recommended a 2 week course of Clindamycin oral as well as Levaquin to see if it helps. D/w that if after this course patient has clinical signs symptoms of infection annel fever that I would recommend surgical exploration and cultures ( regular, AFB and Fungal) Will add Levaquin. If he tolerates this regimen ok to DC home in am on Clinda and Levaquin for 14 days. d/w RN Zully about new medication added and to call me if any allergies or side effects. Will sign off please call back if any change in clinical condition or questions. Katelyn Nathan MD Dec 21, 2016 15:28
[2016-12-21 16:36] VITALS: BP 119/68; PULSE 102; RESP 14; TEMP 98.2; O2SAT 94
[2016-12-21] MEDS: LEVOFLOXACIN 500 MG TAB PO SCH (17:06)
[2016-12-21 19:07] VITALS: BP 135/71; PULSE 96; RESP 18; TEMP 98.8; O2SAT 98
[2016-12-21] MEDS: ATENOLOL 25 MG TAB PO SCH (21:00)
--- NOTE | 2016-12-21 22:43 | EKG ---
Date Performed: 12/18/2016 Time Performed: 19:34:32 PTAGE: 51 years EKG: Sinus rhythm WITH SHORT SD INTERVAL MINIMAL VOLTAGE CRITERIA FOR LVH, CONSIDER NORMAL VARIANT NONSPECIFIC ST & T- WAVE ABNORMALITY BORDERLINE ECG PREVIOUS TRACING : 07/31/2016 20.31 Compared to prior tracing no significant change DOCTOR: George Chambers Interpretating Date/Time 12/21/2016 22:43:35
[2016-12-22] VITALS (7 sets, daily range): BP systolic 105–132; BP diastolic 56–78; PULSE 68–92; RESP 18–21; TEMP 97.6–98.7; O2SAT 93–98
[2016-12-22] MEDS: CLINDAMYCIN 600 MG/NS 100 ML IV SCH ×4 (01:41→11:06)
[2016-12-22] MEDS: D5-1/2 NS + KCL 20 MEQ INJ 1,000 ML IV SCH ×2 (01:41→11:06)
[2016-12-22] MEDS: HYDROmorphone HCL PF 1 MG/ML VIAL IV PRN ×5 (01:42→21:24)
[2016-12-22] MEDS ORDERED: REMOVE OLD DURAGESIC (FENTANYL) PATCH TD SCH (09:00)
[2016-12-22] MEDS: SODIUM CHLORIDE FLUSH BID IVF SCH ×2 (09:00→21:23)
[2016-12-22] MEDS: fentaNYL 75 MCG/HR PATCH TD SCH (10:40)
[2016-12-22] MEDS: DIVALPROEX DR 500 MG TABEC PO SCH ×2 (10:42→21:23)
[2016-12-22] MEDS: LEVOFLOXACIN 500 MG TAB PO SCH (10:42)
[2016-12-22] MEDS: ALPRAZolam 1 MG TAB PO PRN ×2 (11:05→23:48)
--- NOTE | 2016-12-22 12:35 | HHI.PR ---
Subjective Subjective Notes Still painful Going to try cipro challenge so this may be used for outpatient therapy. Objective Vitals/I&O Vital Signs Date Time Temp Pulse Resp B/P Pulse Ox O2 Delivery O2 Flow Rate FiO2 12/22/16 08:02 98.3 71 19 105/56 96 12/18/16 19:38 Room Air Labs Date/Time Procedure Status Source Growth 12/18/16 17:00 Aerobic Blood Culture - Preliminary Resulted Blood Peripheral NO GROWTH IN 4 DAYS 12/18/16 17:00 Anaerobic Blood Culture - Preliminary Resulted Blood Peripheral NO GROWTH IN 4 DAYS Lungs: Clear Narrative Exam Right scrotum less swollen and less erythematous Minimal serous drainage Skin is softer A/P Assessment and Plan Cellulitis RIGHT scrotum with septated hydrocele, slowly improving. Plan: Continue antibiotic; discussed with Dr. Nathan; will try Cipro under observation Have urologist see patient; unlikely to proceed to surgery at this time. Evan Robert MD Dec 22, 2016 12:35
--- NOTE | 2016-12-22 12:38 | HHI.DS ---
Discharge Summary Admission Date Dec 18, 2016 at 17:00 Admitting Diagnosis right scrotal abscess CBC/BMP: 12/18/16 1645 12/18/16 1645 Significant Findings Laboratory Tests Test 12/20/16 16:24 C-Reactive Protein 0.99 MG/DL (0.00-0.30) PE at Discharge Right scrotum less swollen and less erythematous Minimal serous drainage Skin is softer Pt Condition on Discharge: Fair Discharge Disposition: Discharge Home Discharge Instructions DIET: Follow Instructions for: As Tolerated, No Restrictions Activities you can perform: Shower Only-No Bath Activities to Avoid: Strenuous Activity Evan Robert MD Dec 22, 2016 12:38
--- NOTE | 2016-12-22 13:50 | HHI.PR ---
Subjective Remarks still having pain in his right scrotum. denies fevers, chills, nausea, dysuria. Objective Vital Signs Vital Signs Date Time Temp Pulse Resp B/P Pulse Ox O2 Delivery O2 Flow Rate FiO2 12/22/16 12:41 81 19 130/60 95 12/22/16 08:02 98.3 71 19 105/56 96 12/22/16 03:43 98.0 81 18 115/60 93 12/22/16 01:20 97.6 87 18 132/78 98 12/21/16 19:07 98.8 96 18 135/71 98 12/21/16 17:57 18 12/21/16 16:36 98.2 102 14 119/68 94 I/O 12/21/16 12/21/16 12/21/16 12/22/16 12/22/16 12/22/16 07:00 15:00 23:00 07:00 15:00 23:00 Intake Total 1000 ml 240 ml Output Total 700 ml 600 ml Balance 300 ml -360 ml Intake Oral 240 ml IV Total 1000 ml Output Urine Total 700 ml 600 ml # Voids 2 Result Diagram: 12/18/16 1645 12/18/16 1645 Imaging Last 72 hours Impressions Scrotum Ultrasound 12/18/16 165 Signed Impressions: Service Date/Time: Sunday, December 18, 2016 18:06 - CONCLUSION: 1. Very complex septated fluid collection in the right hemiscrotum. Overall appearance is similar to an outside study from [place] performed on December 02, 2016. Left testicle unremarkable. Small left hydrocele. Ramin Albert MD Chest X-Ray 12/18/16 1651 Signed Impressions: Service Date/Time: Sunday, December 18, 2016 17:04 - CONCLUSION: No acute disease. Jase Cloud MD FACR Objective Remarks Right hemiscrotum with nontender, nonerythematous, minimal serous drainage. Firm area anterior part of scrotum, no fluctuance. Assessment and Plan Problem List: (1) Cellulitis of scrotum ICD Code: N49.2 Status: Acute Assessment and Plan --continue antibiotics at this time. --F/U in office 7-10 days. If no significant improvement at that time, will drain while in the office. --Thank you. Please call with questions. Torin Gutierrez MD Dec 22, 2016 13:50
[2016-12-22] MEDS: ATENOLOL 25 MG TAB PO SCH (21:00)
[2016-12-23 01:09] VITALS: BP 159/83; PULSE 92; RESP 16; TEMP 96.3; O2SAT 98
[2016-12-23] MEDS: HYDROmorphone HCL PF 1 MG/ML VIAL IV PRN ×3 (01:13→12:47)
[2016-12-23 04:04] VITALS: BP 130/69; PULSE 67; RESP 18; TEMP 97.2; O2SAT 95
[2016-12-23 08:00] VITALS: BP 137/64; PULSE 94; RESP 18; TEMP 96.6; O2SAT 97
[2016-12-23] MEDS: LEVOFLOXACIN 500 MG TAB PO SCH (08:36)
[2016-12-23] MEDS: SODIUM CHLORIDE FLUSH BID IVF SCH (08:36)
[2016-12-23] MEDS: DIVALPROEX DR 500 MG TABEC PO SCH (08:36)
[2016-12-23 12:54] VITALS: BP 114/71; PULSE 84; RESP 18; TEMP 97; O2SAT 96
[2016-12-23] MEDS ORDERED: oxyCODONE/ACETAMINOPHEN 10 MG/325 MG TAB PO PRN (15:30)
[2016-12-23 15:50] VITALS: BP 139/88; PULSE 100; RESP 18; TEMP 96.8; O2SAT 96
[2016-12-23] MEDS ORDERED: CLIN1CAP6 PO (20:55)
[2016-12-23] MEDS ORDERED: PERC10TA27 PO (20:55)
[2016-12-23] MEDS ORDERED: LEVA500T PO (20:56)
--- NOTE | 2016-12-23 21:00 | HHI.DS ---
Discharge Summary Admission Date Dec 18, 2016 at 17:00 Admitting Diagnosis right scrotal abscess Brief History Admitted for fever, erythema, increasing pain right scrotum PE at Discharge Right scrotum less swollen and less erythematous Minimal serous drainage Skin is softer Hospital Course Patient admitted for worsening symptoms and seen by urology; started on IV antibiotics and felt not to need urgent surgery. Slowly improving, although pain management remains a problem. On fentanyl patch 75 mcg q3d and percocet 10/325 Pt Condition on Discharge: Fair Discharge Disposition: Discharge Home Discharge Instructions DIET: Follow Instructions for: As Tolerated, No Restrictions Activities you can perform: Shower Only-No Bath Activities to Avoid: Strenuous Activity New Medications: Clindamycin (Clindamycin) 300 Mg Cap 300 MG PO TID Infection #30 Ref 0 CAP Levofloxacin (Levaquin) 500 Mg Tab 500 MG PO DAILY Infection #14 Ref 0 TAB Oxycodone-Acetaminophen (Percocet) 10-325 mg Tab 1 TAB PO Q4H PRN PAIN #30 Ref 0 TAB Evan Robert MD Dec 23, 2016 20:59
== END 2016-12-23 21:14 | disposition home or self-care (01) | DRG 728 ==
LOC: NEPD 14:21 → NEDA 17:00 → NEPHCDU 21:26 → HOCA 12-23 00:49
PROVIDERS: ADMIT Surgery Trauma Surgery; ATTEND Surgery Trauma Surgery
DX: N49.2 Inflammatory disorders of scrotum (principal); I10 Essential (primary) hypertension; N43.3 Hydrocele, unspecified; G40.909 Epilepsy, unspecified, not intractable, without status epilepticus; F41.9 Anxiety disorder, unspecified; G89.29 Other chronic pain; Z86.73 Personal history of transient ischemic attack (TIA), and cerebral infarction without residual deficits; Z88.6 Allergy status to analgesic agent; Z88.1 Allergy status to other antibiotic agents; Z88.5 Allergy status to narcotic agent
CPT/HCPCS: 71010; 76870; 80053; 85025; 85610; 85730; 86140; 87040; 93005; 93975; 99285; J0295; J1170; J2405; J3480

== ENCOUNTER 2017-01-24 16:59 | Emergency (ER) | payer OTHER ==
[~2017-01-24] VITALS: Ht 182.9 cm; Wt 80.0 kg
[~2017-01-24 16:59] MED LIST changes: -AUGM875T PO; -BACT800T5 PO; -CEPH250C PO; +CLEO300C2 PO; +CLIN1CAP6 PO; +FENT75DI T-DERMAL; -HYDR-3366 PO; +LEVA500T PO
[2017-01-24 17:01] VITALS: BP 109/72; PULSE 86; RESP 16; TEMP 97.4; O2SAT 93
[2017-01-24 17:10] VITALS: BP 122/69; PULSE 81; RESP 20; O2SAT 92
[2017-01-24 17:21] VITALS: O2SAT 96
--- NOTE | 2017-01-24 17:27 | PD ---
HPI Chief Complaint: OD/ Ingestion Time Seen by Provider: 17:15 Travel History International Travel<30 days: No Contact w/Intl Traveler<30days: No Traveled to known affect area: No History of Present Illness HPI This patient presents after intentional overdose. His told him today that she wanted to divorce him and then he responded by taking an intentional overdose of 4 different medications that are prescriptions of his. He took them at 4:00 PM presents around 5:15 PM. He has symptoms of drowsiness but is awake and talking. He took unknown amounts of Percocet and Soma and Xanax and atenolol. He is not sure how many of each she took. Symptoms severity is moderate. No alleviating factors. No prior history of psychiatric problems. He has developed narcotic addiction and had multiple hernia surgeries and an orchiectomy. Duration one day of his suicidal behavior PFSH Past Medical History Anxiety: Yes Cardiovascular Problems: Yes (htn) Cerebrovascular Accident: Yes (CVA 2009) Diminished Hearing: No Hypertension: Yes Seizures: Yes Past Surgical History Abdominal Surgery: Yes (INGUINAL HERNIORRHAPHY x6) Appendectomy: Yes Genitourinary Surgery: Yes (ORCHIECTOMY) Other Surgery: Yes (TESTICULAR SX) Social History Alcohol Use: No Tobacco Use: No Substance Use: No Allergies-Medications (Allergen,Severity, Reaction): Coded Allergies: Cipro (Verified Allergy, Severe, 01/24/17) Toradol (Verified Allergy, Severe, 01/24/17) "states not allergic but med is not effective" Codeine (Verified Allergy, Unknown, 01/24/17) Tramadol (Verified Allergy, Unknown, 01/24/17) Reported Meds & Prescriptions Reported Meds & Active Scripts Active Percocet (Oxycodone-Acetaminophen) 10-325 mg Tab 1 Tab PO Q4H PRN Percocet (Oxycodone-Acetaminophen) 10-325 mg Tab 1-2 Tab PO Q4H PRN Reported Soma (Carisoprodol) 350 Mg Tab 350 Mg PO QID PRN Depakote ER (Divalproex Sodium) 500 Mg Edyta 1,000 Mg PO HS Cyanocobalamin Inj (Cyanocobalamin) 1,000 Mcg/Ml Inj 1,000 Mcg SQ THREE TIMES MONTHLY Give on the , the and the of each month Atenolol 25 Mg Tab 25 Mg PO HS Alprazolam 1 Mg Tab 2 Mg PO BID PRN Review of Systems General / Constitutional: No: Fever Eyes: No: Visual changes HENT: No: Headaches Cardiovascular: No: Chest Pain or Discomfort Respiratory: No: Shortness of Breath Gastrointestinal: No: Abdominal Pain Genitourinary: No: Dysuria Musculoskeletal: Positive: Pain Skin: No Rash Neurologic: No: Weakness Psychiatric: Positive: Depression, Suicidal Ideations Endocrine: No: Polydipsia Hematologic/Lymphatic: No: Easy Bruising Physical Exam Narrative GENERAL: Well-nourished, well-developed patient in no apparent distress. SKIN: Warm and dry. HEAD: Atraumatic. Normocephalic. EYES: Pupils equal and round. No scleral icterus. No injection or drainage. ENT: No nasal bleeding or discharge. Mucous membranes pink and moist. NECK: Trachea midline. No JVD. CARDIOVASCULAR: Regular rate and rhythm. No murmur appreciated. RESPIRATORY: No accessory muscle use. Clear to auscultation. Breath sounds equal bilaterally. GASTROINTESTINAL: Abdomen soft, non-tender, nondistended. Hepatic and splenic margins not palpable. MUSCULOSKELETAL: No obvious deformities. No clubbing. No cyanosis. No edema. NEUROLOGICAL: Awake but drowsy. No obvious cranial nerve deficits. Motor grossly within normal limits. Some good and soft-spoken but understandable speech. PSYCHIATRIC: Depressed mood and flat affect; insight and judgment poor. Data Data Last Documented VS Vital Signs Date Time Temp Pulse Resp B/P Pulse Ox O2 Delivery O2 Flow Rate FiO2 01/24/17 18:20 77 14 108/64 95 Nasal Cannula 2 01/24/17 17:01 97.4 Orders Electrocardiogram (01/24/17 17:16) Complete Blood Count With Diff (01/24/17 17:16) Comprehensive Metabolic Panel (01/24/17 17:16) Iv Access Insert/Monitor (01/24/17 17:16) Ecg Monitoring (01/24/17 17:16) Oximetry (01/24/17 17:16) Psych Screen (01/24/17 17:16) Sodium Chloride 0.9% Flush (Ns Flush) (01/24/17 17:30) Call Poison Control (01/24/17 17:16) Drug Screen, Random Urine (01/24/17 17:16) Alcohol (Ethanol) (01/24/17 17:16) Salicylates (Aspirin) (01/24/17 17:16) Tylenol (Acetaminophen) (01/24/17 17:16) Glucagon Inj (Glucagon Inj) (01/24/17 17:30) Valproic Acid (Depakene) (01/24/17 18:11) Tylenol (Acetaminophen) (01/24/17 20:00) Labs Laboratory Tests Test 01/24/17 17:25 White Blood Count 6.2 TH/MM3 Red Blood Count 4.45 MIL/MM3 Hemoglobin 14.2 GM/DL Hematocrit 40.7 % Mean Corpuscular Volume 91.5 FL Mean Corpuscular Hemoglobin 31.8 PG Mean Corpuscular Hemoglobin 34.8 % Concent Red Cell Distribution Width 13.0 % Platelet Count 160 TH/MM3 Mean Platelet Volume 8.9 FL Neutrophils (%) (Auto) 51.9 % Lymphocytes (%) (Auto) 37.8 % Monocytes (%) (Auto) 7.4 % Eosinophils (%) (Auto) 2.3 % Basophils (%) (Auto) 0.6 % Neutrophils # (Auto) 3.2 TH/MM3 Lymphocytes # (Auto) 2.3 TH/MM3 Monocytes # (Auto) 0.5 TH/MM3 Eosinophils # (Auto) 0.1 TH/MM3 Basophils # (Auto) 0.0 TH/MM3 CBC Comment DIFF FINAL Differential Comment Sodium Level 146 MEQ/L Potassium Level 4.4 MEQ/L Chloride Level 112 MEQ/L Carbon Dioxide Level 26.8 MEQ/L Anion Gap 7 MEQ/L Blood Urea Nitrogen 10 MG/DL Creatinine 1.23 MG/DL Estimat Glomerular Filtration 62 ML/MIN Rate Random Glucose 111 MG/DL Calcium Level 8.1 MG/DL Total Bilirubin 0.2 MG/DL Aspartate Amino Transf 22 U/L (AST/SGOT) Alanine Aminotransferase 27 U/L (ALT/SGPT) Alkaline Phosphatase 44 U/L Total Protein 6.2 GM/DL Albumin 3.5 GM/DL Salicylates Level LESS THAN 1.7 MG/DL Acetaminophen Level 9.9 MCG/ML Ethyl Alcohol Level LESS THAN 3 MG/DL MDM Medical Decision Making Medical Screen Exam Complete: Yes Emergency Medical Condition: Yes Medical Record Reviewed: Yes Differential Diagnosis Intentional overdose, suicidal ideation, adjustment disorder with depressed mood Narrative Course I have reviewed the patient's electronic medical record. Patient was hospitalized December 23, 2016 for scrotal cellulitis IV placed Extended cardiac monitoring reveals sinus rhythm with occasional PVC I reviewed his EKG which shows sinus rhythm with 2 PVCs CBC is normal Metabolic profile is normal LFTs are normal Alcohol is negative Tylenol is 9.9 but that is a one-hour level I have ordered an 8 PM level which will be 4 hours from ingestion. Aspirin is negative Tox screen is ordered I've also ordered Depakote as he takes that but denies overdosing on it On recheck of the patient he is awake and talking and does not look any more drowsy than before. I doubt he took large quantities of any of the medications. He has had no bradycardia or hypotension. If His 4 hour Tylenol level is not concerning and he remains hemodynamically normal at that time likely will be medically cleared and disposition per psychiatry Nurse is calling Poison control for further recommendations. Diagnosis Primary Impression: Overdose Qualified Code: T50.902A - Overdose, intentional self-harm, initial encounter Additional Impression: Adjustment disorder with depressed mood Saúl Moreno MD Jan 24, 2017 17:27
[2017-01-24] MEDS ORDERED: SODIUM CHLORIDE 0.9% FLUSH 5 ML FLUSH IVF PRN (17:30)
[2017-01-24] MEDS ORDERED: GLUCAGON 1 MG/ML VIAL IV PUSH ONE (17:30)
[2017-01-24 17:36] VITALS: BP 97/63; PULSE 81; RESP 18; O2SAT 96
[2017-01-24 17:40] LABS: AUTOMATED NEUTROPHIL # 3.2 TH/MM3 (1.8-7.7); BASOPHIL % 0.6 % (0.0-2.0); EOSINOPHIL # 0.1 TH/MM3 (0-0.4); EOSINOPHIL % 2.3 % (0.0-4.0); HEMATOCRIT 40.7 % (39.0-51.0); HEMO FLAGS DIFF FINAL; LYMPH % 37.8 % (9.0-44.0); LYMPHOCYTE # 2.3 TH/MM3 (1.0-4.8); MEAN CELL VOLUME 91.5 FL (80.0-100.0); MEAN CORPUSCULAR HEMOGLOBIN 31.8 PG (27.0-34.0); MEAN CORPUSCULAR HGB CONC 34.8 % (32.0-36.0); MONO % 7.4 % (0.0-8.0); NEUT % 51.9 % (16.0-70.0); PLATELET COUNT 160 TH/MM3 (150-450); RED BLOOD COUNT 4.45 MIL/MM3 (4.50-5.90); WHITE BLOOD COUNT 6.2 TH/MM3 (4.0-11.0)
[2017-01-24 17:51] LABS: ALT (GPT) 27 U/L (12-78); ANION GAP 7 MEQ/L (5-15); AST (GOT) 22 U/L (15-37); BICARBONATE 26.8 MEQ/L (21.0-32.0); BLOOD UREA NITROGEN 10 MG/DL (7-18); CHLORIDE 112 MEQ/L (98-107); GLOMERULAR FILTRATION RATE 62 ML/MIN (>89); POTASSIUM 4.4 MEQ/L (3.5-5.1); SODIUM (NA) 146 MEQ/L (136-145)
[2017-01-24 17:54] LABS: ACETAMINOPHEN 9.9 MCG/ML (10.0-30.0); ALKALINE PHOSPHATASE 44 U/L (45-117); TOTAL BILIRUBIN ADULT 0.2 MG/DL (0.2-1.0)
[2017-01-24] MEDS ORDERED: SOMA350T PO (18:19)
[2017-01-24 18:20] VITALS: BP 108/64; PULSE 77; RESP 14; O2SAT 95
--- NOTE | 2017-01-24 22:03 | PD ---
Physical Exam Narrative Patient was seen by ED physician and signed out to me. Data Data Last Documented VS Vital Signs Date Time Temp Pulse Resp B/P Pulse Ox O2 Delivery O2 Flow Rate FiO2 01/24/17 18:20 77 14 108/64 95 Nasal Cannula 2 01/24/17 17:01 97.4 Orders Electrocardiogram (01/24/17 17:16) Complete Blood Count With Diff (01/24/17 17:16) Comprehensive Metabolic Panel (01/24/17 17:16) Iv Access Insert/Monitor (01/24/17 17:16) Ecg Monitoring (01/24/17 17:16) Oximetry (01/24/17 17:16) Psych Screen (01/24/17 17:16) Sodium Chloride 0.9% Flush (Ns Flush) (01/24/17 17:30) Call Poison Control (01/24/17 17:16) Drug Screen, Random Urine (01/24/17 17:16) Alcohol (Ethanol) (01/24/17 17:16) Salicylates (Aspirin) (01/24/17 17:16) Tylenol (Acetaminophen) (01/24/17 17:16) Glucagon Inj (Glucagon Inj) (01/24/17 17:30) Valproic Acid (Depakene) (01/24/17 18:11) Tylenol (Acetaminophen) (01/24/17 20:00) Labs Laboratory Tests Test 01/24/17 01/24/17 17:25 20:09 White Blood Count 6.2 TH/MM3 Red Blood Count 4.45 MIL/MM3 Hemoglobin 14.2 GM/DL Hematocrit 40.7 % Mean Corpuscular Volume 91.5 FL Mean Corpuscular Hemoglobin 31.8 PG Mean Corpuscular Hemoglobin 34.8 % Concent Red Cell Distribution Width 13.0 % Platelet Count 160 TH/MM3 Mean Platelet Volume 8.9 FL Neutrophils (%) (Auto) 51.9 % Lymphocytes (%) (Auto) 37.8 % Monocytes (%) (Auto) 7.4 % Eosinophils (%) (Auto) 2.3 % Basophils (%) (Auto) 0.6 % Neutrophils # (Auto) 3.2 TH/MM3 Lymphocytes # (Auto) 2.3 TH/MM3 Monocytes # (Auto) 0.5 TH/MM3 Eosinophils # (Auto) 0.1 TH/MM3 Basophils # (Auto) 0.0 TH/MM3 CBC Comment DIFF FINAL Differential Comment Sodium Level 146 MEQ/L Potassium Level 4.4 MEQ/L Chloride Level 112 MEQ/L Carbon Dioxide Level 26.8 MEQ/L Anion Gap 7 MEQ/L Blood Urea Nitrogen 10 MG/DL Creatinine 1.23 MG/DL Estimat Glomerular Filtration 62 ML/MIN Rate Random Glucose 111 MG/DL Calcium Level 8.1 MG/DL Total Bilirubin 0.2 MG/DL Aspartate Amino Transf 22 U/L (AST/SGOT) Alanine Aminotransferase 27 U/L (ALT/SGPT) Alkaline Phosphatase 44 U/L Total Protein 6.2 GM/DL Albumin 3.5 GM/DL Salicylates Level LESS THAN 1.7 MG/DL Acetaminophen Level 9.9 MCG/ML 6.5 MCG/ML Valproic Acid (Depakene) Level 96 MCG/ML Ethyl Alcohol Level LESS THAN 3 MG/DL MDM Supervised Visit with ARMANDO: No Narrative Course 20 03 PM. Patient is medically cleared for psychiatric evaluation and disposition. Diagnosis Primary Impression: Overdose Qualified Code: T50.902A - Overdose, intentional self-harm, initial encounter Additional Impression: Adjustment disorder with depressed mood Abdelrahman Sanz MD Jan 24, 2017 22:03
[2017-01-24 22:56] VITALS: BP 117/69; PULSE 84; RESP 20; O2SAT 95
[2017-01-25 00:15] LABS: AMPHETAMINE, URINE NEG (NEG); BARBITURATES, URINE POS (NEG); COCAINE, URINE NEG (NEG)
[2017-01-25 03:22] VITALS: BP 121/56; PULSE 70; RESP 18; TEMP 97.3; O2SAT 99
[2017-01-25 06:24] VITALS: BP 109/50; PULSE 68; RESP 18; TEMP 97.3; O2SAT 97
--- NOTE | 2017-01-25 10:29 | PD ---
History of Present Illness Chief Complaint: OD/ Ingestion Time Seen by Provider: 10:00 Travel History International Travel<30 Days: No Contact w/Intl Traveler<30days: No Known affected area: No Legal Status Legal Status: Ji Act Ji Act Signed By: Margy Act Comment: DR. ARRIAGA, [facility] ED History of Present Illness: History of Present Illness The patient is a 51 year old male with no psychiatric history who presents to ED after an alleged intentional overdose. As per documentation by ED provider and included in this report; " His told him today that she wanted to divorce him and then he responded by taking an intentional overdose of 4 different medications that are prescriptions of his. He took them at 4:00 PM presents around 5:15 PM. He has symptoms of drowsiness but is awake and talking. He took unknown amounts of Percocet and Soma and Xanax and atenolol. He is not sure how many of each he took. The patient did not present any significant sedation indicating that he did in fact take all the reported medication and was then transferred to J pod after ED provider initiated a Ji act. EMR is reviewed . This patient was evaluated by Dr. Harris in July 2016 after an episode of AMS possibly related to benzodiazepine. No other contact with [facility] psychiatry dept. Patient is seen in J pod. he is awake, alert and oriented male who appears stated age. he is dressed in [facility] and maintaining basic hygiene. His speech is clear and logical, There is no indication that he is experiencing any hallucinations, no delusions and no paranoia. His mood is euthymic. he denies any depression or anxiety and denies any suicidal or homicidal ideation, intent or plan. Patient states that he was involved in an argument with his and that the police were called. They were unable to find the Xanax bottle which is prescribed to him and inferred he had taken such medication. H e states that the bottle was found in his 's purse after she was taken to skilled nursing and he was brought to [facility]. he states that " I love my life and I have no reason to hurt myself at all. I need to be discharged so that I can go and pick my up". If she wants to divorce me so be it". PFSH Past Medical History Anxiety: Yes Cardiovascular Problems: Yes (htn) Cerebrovascular Accident: Yes (CVA 2009) Diminished Hearing: No Hypertension: Yes Seizures: Yes Past Surgical History Abdominal Surgery: Yes (INGUINAL HERNIORRHAPHY x6) Appendectomy: Yes Genitourinary Surgery: Yes (ORCHIECTOMY) Other Surgery: Yes (TESTICULAR SX) Psychiatric History Psychiatric History Hx Psychiatric Treatment: HX OF ANXIETY and receives tretametn by his PCP. Has never received psychiatric tretament History of Inpatient Treatment: No Guns or firearms in home: No Social History Born in [place]. x 2. This marriage x 2 years. No children. Works in [employer] for a [employer] course. He is currently unemployed secondary to hernia surgery. Lives with si and his mother. Hx Alcohol Use: No Hx Tobacco Use: No Hx Substance Use: Yes Substance Use Type: Marijuana, Synth Opiates-Pain Pills Other Substances Used: DENIED Hx of Substance Use Treatment: Yes Family Psychiatric History None reported Allergies-Medications (Allergen,Severity, Reaction): Coded Allergies: Cipro (Verified Allergy, Severe, 01/24/17) Toradol (Verified Allergy, Severe, 01/24/17) "states not allergic but med is not effective" Codeine (Verified Allergy, Unknown, 01/24/17) Tramadol (Verified Allergy, Unknown, 01/24/17) Reported Meds & Prescriptions Reported Meds & Active Scripts Active Percocet (Oxycodone-Acetaminophen) 10-325 mg Tab 1 Tab PO Q4H PRN Percocet (Oxycodone-Acetaminophen) 10-325 mg Tab 1-2 Tab PO Q4H PRN Reported Soma (Carisoprodol) 350 Mg Tab 350 Mg PO QID PRN Depakote ER (Divalproex Sodium) 500 Mg Edyta 1,000 Mg PO HS Cyanocobalamin Inj (Cyanocobalamin) 1,000 Mcg/Ml Inj 1,000 Mcg SQ THREE TIMES MONTHLY Give on the , the and the of each month Atenolol 25 Mg Tab 25 Mg PO HS Alprazolam 1 Mg Tab 2 Mg PO BID PRN Review of Systems Except as stated in HPI: all other systems reviewed are Neg Psychiatric: DENIES: Anxiety, Confusion, Mood changes, Depression, Hallucinations, Agitation, Suicidal Ideation, Homicidal Ideation, Delusions Exam Alert: Yes [place]: Person (ox4) Mood: Calm Affect: Euthymic Speech: Clear, Logical Eye Contact: Normal Memory Intact: Comment (no impairment) Hallucinations: Other (negative) Delusions: No Suicidal: Ideation (deneis any) Homicidal: Ideation (deneis any) Insight/Judgement Fair. Not impaired. MDM Medical Decision Making Medical Record Reviewed: Yes Assessment/Plan 51 year old male with no previous psychiatric history under a BA after an alleged overdose. the patient denies that he took any medication that has not been prescribed to him and that the missing Xanax bottle was found in his ' s purse. He did not present any symptoms or signs of oversedation. He denies any suicidal or homicidal ideation, intent or plan. At this time the patient is in emotional control, does not present any symptom of depression and is future oriented. he does not meet BA criteria and is requesting discharge. The BA will be lifted and he will be discharged. Orders Electrocardiogram (01/24/17 17:16) Complete Blood Count With Diff (01/24/17 17:16) Comprehensive Metabolic Panel (01/24/17 17:16) Iv Access Insert/Monitor (01/24/17 17:16) Ecg Monitoring (01/24/17 17:16) Oximetry (01/24/17 17:16) Psych Screen (01/24/17 17:16) Sodium Chloride 0.9% Flush (Ns Flush) (01/24/17 17:30) Call Poison Control (01/24/17 17:16) Drug Screen, Random Urine (01/24/17 17:16) Alcohol (Ethanol) (01/24/17 17:16) Salicylates (Aspirin) (01/24/17 17:16) Tylenol (Acetaminophen) (01/24/17 17:16) Glucagon Inj (Glucagon Inj) (01/24/17 17:30) Valproic Acid (Depakene) (01/24/17 18:11) Tylenol (Acetaminophen) (01/24/17 20:00) Diet Regular Basic (01/25/17 Breakfast) Results Vital Signs Date Time Temp Pulse Resp B/P Pulse Ox O2 Delivery O2 Flow Rate FiO2 01/25/17 06:24 97.3 68 18 109/50 97 Room Air 01/25/17 03:22 97.3 70 18 121/56 99 Room Air 01/24/17 22:56 84 20 117/69 95 Room Air 01/24/17 18:20 77 14 108/64 95 Nasal Cannula 2 01/24/17 17:36 81 18 97/63 96 Nasal Cannula 2 01/24/17 17:21 96 Nasal Cannula 2 01/24/17 17:10 81 20 122/69 92 01/24/17 17:01 97.4 86 16 109/72 93 Room Air Laboratory Tests Test 01/24/17 01/24/17 01/24/17 17:25 20:09 23:50 White Blood Count 6.2 Red Blood Count 4.45 Hemoglobin 14.2 Hematocrit 40.7 Mean Corpuscular Volume 91.5 Mean Corpuscular Hemoglobin 31.8 Mean Corpuscular Hemoglobin 34.8 Concent Red Cell Distribution Width 13.0 Platelet Count 160 Mean Platelet Volume 8.9 Neutrophils (%) (Auto) 51.9 Lymphocytes (%) (Auto) 37.8 Monocytes (%) (Auto) 7.4 Eosinophils (%) (Auto) 2.3 Basophils (%) (Auto) 0.6 Neutrophils # (Auto) 3.2 Lymphocytes # (Auto) 2.3 Monocytes # (Auto) 0.5 Eosinophils # (Auto) 0.1 Basophils # (Auto) 0.0 CBC Comment DIFF FINAL Differential Comment Sodium Level 146 Potassium Level 4.4 Chloride Level 112 Carbon Dioxide Level 26.8 Anion Gap 7 Blood Urea Nitrogen 10 Creatinine 1.23 Estimat Glomerular Filtration 62 Rate Random Glucose 111 Calcium Level 8.1 Total Bilirubin 0.2 Aspartate Amino Transf 22 (AST/SGOT) Alanine Aminotransferase 27 (ALT/SGPT) Alkaline Phosphatase 44 Total Protein 6.2 Albumin 3.5 Salicylates Level LESS THAN 1.7 Acetaminophen Level 9.9 6.5 Valproic Acid (Depakene) Level 96 Ethyl Alcohol Level LESS THAN 3 Urine Opiates Screen NEG Urine Barbiturates Screen POS Urine Amphetamines Screen NEG Urine Benzodiazepines Screen POS Urine Cocaine Screen NEG Urine Cannabinoids Screen NEG Diagnosis Primary Impression: adjustment disorder Ruled Out: Overdose Psychiatrically Cleared: Yes Med/ Other Pt Specific Info: No Change to Meds Disposition: 01 DISCHARGE HOME Condition: Stable Alicia James Jan 25, 2017 10:29
[2017-01-25 10:44] VITALS: BP 109/50; PULSE 68; RESP 18; O2SAT 97
--- NOTE | 2017-01-25 12:40 | EKG ---
Date Performed: 01/24/2017 Time Performed: 17:12:10 PTAGE: 51 years EKG: Sinus rhythm WITH OCCASIONAL VENTRICULAR PREMATURE COMPLEXES NONSPECIFIC T-WAVE ABNORMALITY BORDERLINE ECG Compar ed to prior tracing no significant change PREVIOUS TRACING : 12/18/2016 19.34 DOCTOR: Israel Garcia Interpretating Date/Time 01/25/2017 12:36:21
== END 2017-01-25 11:02 | disposition home or self-care (01) ==
LOC: NEPC 16:59 → NEPJ 01-25 11:02
DX: F43.21 Adjustment disorder with depressed mood (principal); T50.902A Poisoning by unspecified drugs, medicaments and biological substances, intentional self-harm, initial encounter; I10 Essential (primary) hypertension; F41.9 Anxiety disorder, unspecified
CPT/HCPCS: 80053; 80164; 80307; 80320; 85025; 93005; 96374; 99285; J1610; 80329; G0480

== ENCOUNTER 2017-03-24 11:48 | Emergency (ER) | payer OTHER ==
[~2017-03-24] VITALS: Ht 190.5 cm; Wt 100.0 kg
[~2017-03-24 11:48] MED LIST changes: -CLEO300C2 PO; -CLIN1CAP6 PO; -FENT75DI T-DERMAL; -LEVA500T PO; +SOMA350T PO
[2017-03-24 11:51] VITALS: BP 148/72; PULSE 84; RESP 16; TEMP 98.2; O2SAT 98
--- NOTE | 2017-03-24 12:22 | PD ---
HPI Chief Complaint: Headache Time Seen by Provider: 12:22 Travel History International Travel<30 days: No Contact w/Intl Traveler<30days: No Traveled to known affect area: No History of Present Illness HPI 51-year-old male with history of migraine headaches, presents to the emergency department requesting treatment for a migraine headache. Patient states it has been ongoing for the last 3 days. He was just seen and evaluated in his neurologist office, Dr. Valero. He states that Dr. Valero sent him here for pain control. He states that Dr. Valero has plans for Botox injections but cannot get to this for approximately 2 weeks and in the antrum advised that he come here for treatment. Patient denies any focal deficits or weakness. States that. Reports mild nausea without vomiting. Denies any other symptoms at this time. PFSH Past Medical History Anxiety: Yes Cardiovascular Problems: Yes Cerebrovascular Accident: Yes (CVA 2009) Diminished Hearing: No Hypertension: Yes Seizures: Yes Past Surgical History Abdominal Surgery: Yes (INGUINAL HERNIORRHAPHY x6) Appendectomy: Yes Genitourinary Surgery: Yes (ORCHIECTOMY) Other Surgery: Yes (TESTICULAR SX) Social History Alcohol Use: No Tobacco Use: No Substance Use: Yes Allergies-Medications (Allergen,Severity, Reaction): Coded Allergies: Codeine (Verified Allergy, Unknown, 03/24/17) Tramadol (Verified Allergy, Unknown, 03/24/17) Reported Meds & Prescriptions Reported Meds & Active Scripts Active Reported Depakote ER (Divalproex Sodium) 500 Mg Edyta 1,000 Mg PO HS Cyanocobalamin Inj (Cyanocobalamin) 1,000 Mcg/Ml Inj 1,000 Mcg SQ THREE TIMES MONTHLY Give on the , the and the of each month Atenolol 25 Mg Tab 25 Mg PO HS Alprazolam 1 Mg Tab 2 Mg PO BID PRN Review of Systems Except as stated in HPI: all other systems reviewed are Neg Physical Exam Narrative GENERAL: Well-nourished male patient, ambulatory with a nonantalgic gait, in no acute distress SKIN: Focused skin assessment warm/dry. HEAD: Atraumatic. Normocephalic. EYES: Pupils equal and round. No scleral icterus. No injection or drainage. ENT: No nasal bleeding or discharge. Mucous membranes pink and moist. NECK: Trachea midline. No JVD. CARDIOVASCULAR: Regular rate and rhythm. No murmur appreciated. RESPIRATORY: No accessory muscle use. Clear to auscultation. Breath sounds equal bilaterally. GASTROINTESTINAL: Abdomen soft, non-tender, nondistended. Hepatic and splenic margins not palpable. MUSCULOSKELETAL: No obvious deformities. No clubbing. No cyanosis. No edema. NEUROLOGICAL: Awake and alert. No obvious cranial nerve deficits. Motor grossly within normal limits. Normal speech. PSYCHIATRIC: Appropriate mood and affect; insight and judgment normal. Data Data Last Documented VS Vital Signs Date Time Temp Pulse Resp B/P Pulse Ox O2 Delivery O2 Flow Rate FiO2 03/24/17 13:01 63 18 106/63 95 Room Air 03/24/17 11:51 98.2 Orders Iv Access Insert/Monitor (03/24/17 12:21) Sodium Chlor 0.9% 1000 Ml Inj (Ns 1000 M (03/24/17 12:30) Diphenhydramine Inj (Benadryl Inj) (03/24/17 12:30) Prochlorperazine Inj (Compazine Inj) (03/24/17 12:30) MDM Medical Decision Making Medical Screen Exam Complete: Yes Emergency Medical Condition: Yes Medical Record Reviewed: Yes Differential Diagnosis Migraine headache with or without aura versus cluster headache versus tension headache versus electrolyte abnormality Narrative Course 51-year-old male presents to the [facility] emergency Department requesting treatment for his migraine headache. Patient appears well and without distress. There are no focal deficits or weakness. He is given IV Toradol, Benadryl, and Compazine. 1245 Pt is resting in bed with his eyes closed. When I walked into the room, he arouses and I ask if he is feeling better. He replies "No. They gave me benadryl." I clarified that he was given toradol, benadryl, and compazine in addition to NS bolus and was resting quietly in the bed. He then tells me " That stuff doesn't work. I need something more." I informed him we would not be giving narcotics for migraine headache here in the ED. he tells me "then I need Stadol." I discussed this with my attending physician who states that he will not be getting Stadol here in the emergency department. In review of patient's record, he has not been here for migraine headache in the past. I questioned him on this and he states that he goes to [facility] or they "give him whatever he needs for his migraine headaches." Patient's vital signs are stable. He has been resting peacefully since this medication was given to him. His vital signs are normal. Neuro exam is nonfocal. Patient is advised to follow-up with his neurologist and to return immediately with any acute worsening symptoms. Diagnosis Primary Impression: Migraines Qualified Code: G43.009 - Migraine without aura and without status migrainosus , not intractable Referrals: Neurologist Primary Care Physician Patient Instructions: General Instructions, Migraine Headache (ED) Additional Instructions: Follow-up with her neurologist Return immediately with any acute worsening of symptoms Med/Other Pt SpecificInfo: No Change to Meds Disposition: 01 DISCHARGE HOME Condition: Stable Sarah March Mar 24, 2017 12:22
[2017-03-24] MEDS ORDERED: PROCHLORPERAZINE INJ 10 MG/2 ML VIAL IV PUSH ONE (12:30)
[2017-03-24] MEDS ORDERED: SODIUM CHLOR 0.9% 1000 ML INJ 1,000 ML IV ONE (12:30)
[2017-03-24] MEDS ORDERED: diphenhydrAMINE HCL 50 MG/ML VIAL IV PUSH ONE (12:30)
[2017-03-24 12:45] VITALS: BP 111/64; PULSE 74; RESP 18; O2SAT 97
[2017-03-24 13:01] VITALS: BP 106/63; PULSE 63; RESP 18; O2SAT 95
== END 2017-03-24 13:32 | disposition home or self-care (01) ==
LOC: NEPD 11:48
DX: G43.009 Migraine without aura, not intractable, without status migrainosus (principal); I10 Essential (primary) hypertension; Z86.59 Personal history of other mental and behavioral disorders; Z86.79 Personal history of other diseases of the circulatory system; Z86.69 Personal history of other diseases of the nervous system and sense organs
CPT/HCPCS: 96361; 96374; 96375; 99283; J0780; J1200; J7030

== ENCOUNTER 2017-08-18 20:28 | Emergency (ER) | payer OTHER ==
[~2017-08-18] VITALS: Ht 190.5 cm; Wt 102.0 kg
[~2017-08-18 20:28] MED LIST changes: -PERC10TA27 PO; -SOMA350T PO
[2017-08-18 20:31] VITALS: BP 145/72; PULSE 78; RESP 16; TEMP 97.9; O2SAT 100
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
[2017-08-18] MEDS ORDERED: KETOROLAC TROMETHAMINE 60 MG/2 ML (IM) VIAL IM ONE (21:45)
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
[2017-08-18] MEDS ORDERED: HYDR-3533 PO (22:20)
[2017-08-18] MEDS ORDERED: NAPR500 PO (22:20)
== END 2017-08-18 22:43 | disposition home or self-care (01) ==
LOC: NEPK 20:28
DX: S83.92XA Sprain of unspecified site of left knee, initial encounter (principal); S49.91XA Unspecified injury of right shoulder and upper arm, initial encounter; W30.89XA Contact with other specified agricultural machinery, initial encounter
CPT/HCPCS: 73030; 73560; 96372; 99284; J1885

== ENCOUNTER 2017-08-22 14:33 | Inpatient (IN) | payer OTHER ==
[~2017-08-22] VITALS: Ht 190.5 cm; Wt 109.0 kg
[2017-08-22] VITALS (13 sets, daily range): BP systolic 103–154; BP diastolic 63–97; PULSE 81–90; RESP 16–21; TEMP 98–98.6; O2SAT 96–100
[~2017-08-22 14:33] MED LIST changes: +HYDR-3533 PO; +NAPR500 PO
[2017-08-22] MEDS ORDERED: NALOXONE HCL 2 MG/2 ML VIAL ONE (14:37)
[2017-08-22] MEDS ORDERED: ceFAZolin 2 GM PREMIX 0 ML ONE (14:45)
[2017-08-22] MEDS ORDERED: ceFAZolin 2 GM PREMIX 50 ML ONE (14:47)
[2017-08-22 14:54] LABS: AUTOMATED NEUTROPHIL # 3.5 TH/MM3 (1.8-7.7); BASOPHIL % 0.5 % (0.0-2.0); EOSINOPHIL % 0.3 % (0.0-4.0); HEMATOCRIT 39.1 % (39.0-51.0); HEMO FLAGS DIFF FINAL; LYMPH % 47.8 % (9.0-44.0); LYMPHOCYTE # 3.6 TH/MM3 (1.0-4.8); MEAN CELL VOLUME 93.2 FL (80.0-100.0); MEAN CORPUSCULAR HEMOGLOBIN 31.2 PG (27.0-34.0); MEAN CORPUSCULAR HGB CONC 33.5 % (32.0-36.0); NEUT % 46.4 % (16.0-70.0); PLATELET COUNT 215 TH/MM3 (150-450); RED BLOOD COUNT 4.19 MIL/MM3 (4.50-5.90); RED CELL DISTRIBUTION WIDTH 12.7 % (11.6-17.2); WHITE BLOOD COUNT 7.5 TH/MM3 (4.0-11.0)
[2017-08-22 14:58] LABS: APTT (PATIENT) 25.4 SEC (24.3-30.1); PROTHROMBIN TIME - PATIENT 10.6 SEC (9.8-11.6)
[2017-08-22] MEDS ORDERED: IOHEXOL 350 MG/ML 10 ML VIAL (for RAD DIAG) IV PUSH ONE (14:59)
[2017-08-22] MEDS ORDERED: NALOXONE HCL 0.4 MG/ML AMP IV PUSH PRN (15:00)
[2017-08-22] MEDS ORDERED: LEVOFLOXACIN 500 MG PREMIX INJ 100 ML IV SCH (15:00)
[2017-08-22] MEDS ORDERED: ONDANSETRON HCL 4 MG/2 ML VIAL IV PRN (15:00)
[2017-08-22] MEDS ORDERED: SODIUM CHLORIDE 0.9% FLUSH 10 ML FLUSH IV FLUSH PRN (15:00)
[2017-08-22] MEDS ORDERED: Post-op Orders (for Pharmacy) MISC XX ONE (15:00)
[2017-08-22 15:01] LABS: I-STAT POTASSIUM 3.5 MMOL/L (3.5-4.9)
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
[2017-08-22] MEDS ORDERED: PROPOFOL 1000 MG/100 ML INJ 100 ML IV PRN ×2 (15:15→15:30)
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
[2017-08-22] MEDS ORDERED: PROPOFOL 1000 MG/100 ML INJ 100 ML ONE (15:58)
[2017-08-22] MEDS: METOPROLOL TARTRATE 5 MG/5 ML VIAL IV PUSH SCH ×3 (16:00→22:00)
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
[2017-08-22] MEDS: levETIRAcetam INJ 500 MG in SODIUM CHLORIDE 0.9% INJ 100 ML IV SCH (16:05)
[2017-08-22] MEDS: SODIUM CHLOR 0.9% 1000 ML INJ 1,000 ML IV SCH (16:05)
[2017-08-22] MEDS ORDERED: POTASSIUM CHLOR 40 MEQ PREMIX 100 ML IV PRN ×2 (16:15)
[2017-08-22] MEDS ORDERED: MAGNESIUM SULFATE INJ 4 GM in SODIUM CHLORIDE 0.9% INJ 92 ML IV PRN (16:15)
[2017-08-22] MEDS ORDERED: MAGNESIUM SULFATE INJ 2 GM in SODIUM CHLORIDE 0.9% INJ 96 ML IV PRN (16:15)
[2017-08-22] MEDS ORDERED: MAGNESIUM OXIDE 400 MG TAB PO PRN (16:15)
[2017-08-22] MEDS ORDERED: POTASSIUM PHOSPHATE MONOBASIC 500 MG TAB PO PRN (16:15)
[2017-08-22] MEDS ORDERED: POTASSIUM CHLOR 20 MEQ PREMIX 100 ML IV PRN ×2 (16:15)
[2017-08-22] MEDS ORDERED: SODIUM PHOSPHATE INJ 30 MMOL in SODIUM CHLOR 0.9% 250 ML INJ 240 ML IV PRN (16:15)
[2017-08-22] MEDS ORDERED: POTASSIUM CHLORIDE 25 MEQ EFFERVESCENT TAB PO PRN (16:15)
[2017-08-22] MEDS ORDERED: POTASSIUM PHOSPHATE INJ 30 MMOL in SODIUM CHLOR 0.9% 250 ML INJ 250 ML IV PRN (16:15)
[2017-08-22] MEDS ORDERED: POTASSIUM PHOSPHATE MONOBASIC 500 MG TAB PO/TUBE PRN (16:15)
[2017-08-22 16:50] LABS: BLOOD GAS CARBOXYHEMOGLOBIN 1.1 % (0-4); BLOOD GAS HCO3 24 mmol/L (22-26); BLOOD GAS O2 HGB SATURATION 97 % (90-100); BLOOD GAS OXYGEN CONTENT 17.9 Vol % (12.0-20.0); BLOOD GAS PCO2 49 mmHg (38-42); BLOOD GAS PO2 144 mmHg (61-120); BLOOD GAS TOTAL HGB 12.9 G/DL (12.0-16.0); CRITICAL VALUE NO; OXYGEN DEVICE VENTILATOR; TEMP CORR TO 98.6
[2017-08-22 16:51] LABS: DRAW SITE RT RADIAL; FIO2 50 %; NUMBER OF ARTERIAL PUNCTURES 1; STAT YES; ULNAR PULSE PRESENT; VENT SETTINGS AC/16/600/PEEP7
[2017-08-22] MEDS ORDERED: SODIUM CHLOR 0.9% 1000 ML INJ 1,000 ML IV ONE (17:00)
[2017-08-22] MEDS: PROPOFOL 1000 MG/100 ML IV PRN (17:08)
[2017-08-22] MEDS ORDERED: fentaNYL DRIP 250 ML IV PRN (17:15)
[2017-08-22 17:25] LABS: ALCOHOL LESS THAN 3 MG/DL (0-5)
[2017-08-22] MEDS: ENOXAPARIN SODIUM 40 MG/0.4 ML SYRINGE SQ SCH (17:42)
[2017-08-22] MEDS: PIPERACIL-TAZO 4.5 GM PREMIX 100 ML IV SCH (17:42)
[2017-08-22] MEDS: VANCOMYCIN INJ 1,000 MG in SODIUM CHLOR 0.9% 250 ML INJ 250 ML IV SCH (18:12)
[2017-08-22] MEDS: FAMOTIDINE 20 MG/2 ML VIAL IV PUSH SCH (20:23)
[2017-08-22] MEDS: VALPROIC ACID SYRUP 250 MG/5 ML UDC PO SCH (20:23)
[2017-08-22] MEDS: SODIUM CHLORIDE 0.9% FLUSH 10 ML FLUSH IV FLUSH SCH (21:00)
[2017-08-23] VITALS (18 sets, daily range): BP systolic 93–160; BP diastolic 54–68; PULSE 80–116; RESP 15–24; TEMP 97.4–99.9; O2SAT 95–99
[2017-08-23] MEDS: PIPERACIL-TAZO 4.5 GM PREMIX 100 ML IV SCH ×4 (00:09→17:41)
[2017-08-23] MEDS: CHLORHEXIDINE 0.12% (ORAL KIT) 15 ML CUP MT SCH ×2 (00:09→09:26)
[2017-08-23] MEDS: PROPOFOL 1000 MG/100 ML IV PRN ×2 (00:10→05:06)
[2017-08-23] MEDS: SODIUM CHLOR 0.9% 1000 ML INJ 1,000 ML IV SCH ×2 (00:44→10:45)
[2017-08-23] MEDS: levETIRAcetam INJ 500 MG in SODIUM CHLORIDE 0.9% INJ 100 ML IV SCH (03:13)
[2017-08-23] MEDS: METOPROLOL TARTRATE 5 MG/5 ML VIAL IV PUSH SCH ×4 (03:14→21:49)
[2017-08-23] MEDS: VANCOMYCIN INJ 1,000 MG in SODIUM CHLOR 0.9% 250 ML INJ 250 ML IV SCH ×2 (04:55→11:20)
[2017-08-23 05:19] LABS: HEMATOCRIT 34.5 % (39.0-51.0); MEAN CELL VOLUME 94.7 FL (80.0-100.0); MEAN CORPUSCULAR HEMOGLOBIN 31.9 PG (27.0-34.0); MEAN CORPUSCULAR HGB CONC 33.7 % (32.0-36.0); PLATELET COUNT 117 TH/MM3 (150-450); RED BLOOD COUNT 3.64 MIL/MM3 (4.50-5.90); RED CELL DISTRIBUTION WIDTH 13.5 % (11.6-17.2); WHITE BLOOD COUNT 5.3 TH/MM3 (4.0-11.0)
[2017-08-23 05:24] LABS: HEMO FLAGS AUTO DIFF
[2017-08-23 05:58] LABS: BICARBONATE 25.4 MEQ/L (21.0-32.0)
[2017-08-23 06:01] LABS: POTASSIUM 4.4 MEQ/L (3.5-5.1)
[2017-08-23 06:14] LABS: CALCIUM-PROTEIN CORRECTED 7.8 MG/DL (8.5-10.1)
[2017-08-23] MEDS ORDERED: BISACODYL 10 MG SUPP RECTAL PRN (07:15)
--- NOTE | 2017-08-23 07:33 | RADRPT ---
EXAM DATE/TIME: 08/23/2017 07:10 [place] COMPARISON: CHEST SINGLE AP, August 22, 2017, 14:26. INDICATIONS : Respiratory distress. MEDICAL HISTORY : Unobtainable. SURGICAL HISTORY : Unobtainable ENCOUNTER: Subsequent ACUITY: 1 day PAIN SCORE: Non-responsive. LOCATION: Bilateral chest FINDINGS: A single view of the chest demonstrates the endotracheal tube and nasogastric are both in good positi on. There has been the interval development of patchy infiltrates throughout the lungs. The cardiome diastinal contours are unremarkable. Osseous structures are intact. CONCLUSION: ET tube in good position. Interval development of some patchy areas of airspace disease throughout th e lungs. Gideon Urrutia MD on August 23, 2017 at 7:31 Board Certified Radiologist. This report was verified electronically.
[2017-08-23] MEDS ORDERED: FUROSEMIDE 40 MG/4 ML VIAL ONE (07:37)
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
[2017-08-23 08:22] LABS: BANDS 36 % (0-6); METAMYELOCYTES 8 % (0-1); MYELOCYTES 1 % (0-0); NEUTROPHIL # MANUAL DIFF 4.3 TH/MM3 (1.8-7.7); POLYS (SEG NEUTROPHILS) 36 % (16-70); WBC DIFF SAMPLE 100
[2017-08-23 08:23] LABS: PLATELET ESTIMATE SMEAR LOW (NORMAL); PLATELET MORPHOLOGY NORMAL (NORMAL); SCAN/DIFF FINAL DIFF MANUAL
[2017-08-23] MEDS ORDERED: FUROSEMIDE 20 MG/2 ML VIAL IV PUSH ONE (08:30)
[2017-08-23] MEDS: FAMOTIDINE 20 MG/2 ML VIAL IV PUSH SCH (08:53)
[2017-08-23] MEDS: LACTULOSE SYRUP 20 GM/30 ML CUP PO SCH (08:53)
[2017-08-23] MEDS: VALPROIC ACID SYRUP 250 MG/5 ML UDC PO SCH (08:53)
[2017-08-23] MEDS: DOCUSATE SODIUM 50 MG/SENNA 8.6 MG TAB PO SCH ×2 (08:54→19:33)
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
[2017-08-23] MEDS: SODIUM CHLORIDE 0.9% FLUSH 10 ML FLUSH IV FLUSH SCH ×2 (09:26→19:32)
[2017-08-23 09:34] LABS: BLOOD, URINE NEG (NEG); GLUCOSE,URINE NEG (NEG); KETONE, URINE NEG (NEG); NITRITE,URINE NEG (NEG); URINE COLOR COLORLESS (YELLW/STRAW)
[2017-08-23 09:35] LABS: COMMENT (UR) CATH-CULT NOT IND; CULTURE IF INDICATED CATH CULTURE NOT IND
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
[2017-08-23] MEDS: KETOROLAC TROMETHAMINE 30 MG/ML (IVP) VIAL IV PUSH PRN (12:48)
[2017-08-23] MEDS: oxyCODONE/ACETAMINOPHEN 7.5 MG/325 MG TAB PO PRN ×2 (15:35→21:49)
[2017-08-23] MEDS ORDERED: PERC10TA27 PO (17:23)
[2017-08-23] MEDS ORDERED: BUTO10SO NASAL (17:23)
[2017-08-23] MEDS ORDERED: GABA300C5 PO (17:23)
[2017-08-23] MEDS ORDERED: ALPR1TAB3 PO (17:23)
[2017-08-23] MEDS ORDERED: DIVA250ER PO (17:23)
[2017-08-23] MEDS ORDERED: VITAMIN B-12 IM (17:23)
[2017-08-23] MEDS ORDERED: VITAMIN B12 1000 MCG IM SCH (17:30)
[2017-08-23] MEDS: ENOXAPARIN SODIUM 40 MG/0.4 ML SYRINGE SQ SCH (17:41)
[2017-08-23] MEDS: ALPRAZolam 1 MG TAB PO SCH (17:41)
[2017-08-23] MEDS ORDERED: CYANOCOBALAMIN 1000 MCG/ML VIAL IM SCH (18:00)
[2017-08-23] MEDS: FAMOTIDINE 20 MG TAB PO SCH (19:33)
[2017-08-23] MEDS: GABAPENTIN 300 MG CAP PO SCH (19:33)
[2017-08-23] MEDS: RESP: ALBUTEROL 2.5 MG/IPRATROPIUM 0.5 MG NEB (SCH) NEB (20:08)
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
[2017-08-24] VITALS (14 sets, daily range): BP systolic 96–117; BP diastolic 55–68; PULSE 86–113; RESP 13–24; TEMP 97.6–98; O2SAT 93–100
[2017-08-24] MEDS: PIPERACIL-TAZO 4.5 GM PREMIX 100 ML IV SCH ×5 (00:15→23:48)
[2017-08-24] MEDS: VANCOMYCIN INJ 1,000 MG in SODIUM CHLOR 0.9% 250 ML INJ 250 ML IV SCH ×3 (00:15→23:48)
[2017-08-24] MEDS: ALPRAZolam 1 MG TAB PO SCH (02:00)
[2017-08-24] MEDS: RESP: ALBUTEROL 2.5 MG/IPRATROPIUM 0.5 MG NEB (PRN) NEB (03:07)
[2017-08-24] MEDS: oxyCODONE/ACETAMINOPHEN 7.5 MG/325 MG TAB PO PRN (03:38)
[2017-08-24] MEDS: METOPROLOL TARTRATE 5 MG/5 ML VIAL IV PUSH SCH (04:43)
[2017-08-24 05:15] LABS: AUTOMATED NEUTROPHIL # 9.2 TH/MM3 (1.8-7.7); BASOPHIL % 0.2 % (0.0-2.0); EOSINOPHIL # 0.1 TH/MM3 (0-0.4); EOSINOPHIL % 1.3 % (0.0-4.0); HEMATOCRIT 31.6 % (39.0-51.0); LYMPH % 6.3 % (9.0-44.0); LYMPHOCYTE # 0.7 TH/MM3 (1.0-4.8); MEAN CELL VOLUME 93.3 FL (80.0-100.0); MEAN CORPUSCULAR HGB CONC 34.3 % (32.0-36.0); MONO % 3.5 % (0.0-8.0); NEUT % 88.7 % (16.0-70.0); PLATELET COUNT 95 TH/MM3 (150-450); RED BLOOD COUNT 3.39 MIL/MM3 (4.50-5.90); RED CELL DISTRIBUTION WIDTH 13.6 % (11.6-17.2); WHITE BLOOD COUNT 10.4 TH/MM3 (4.0-11.0)
[2017-08-24 05:32] LABS: ALKALINE PHOSPHATASE 36 U/L (45-117); ALT (GPT) 12 U/L (12-78); ANION GAP 7 MEQ/L (5-15); AST (GOT) 30 U/L (15-37); BICARBONATE 27.1 MEQ/L (21.0-32.0); BLOOD UREA NITROGEN 18 MG/DL (7-18); CHLORIDE 109 MEQ/L (98-107); GLOMERULAR FILTRATION RATE 53 ML/MIN (>89); POTASSIUM 3.5 MEQ/L (3.5-5.1); SODIUM (NA) 143 MEQ/L (136-145); TOTAL BILIRUBIN ADULT 0.4 MG/DL (0.2-1.0)
[2017-08-24 05:36] LABS: HEMO FLAGS AUTO DIFF
--- NOTE | 2017-08-24 06:32 | RADRPT ---
EXAM DATE/TIME: 08/24/2017 05:32 [facility] COMPARISON: No previous studies available for comparison. INDICATIONS : Short of breath. MEDICAL HISTORY : None. SURGICAL HISTORY : None. ENCOUNTER: Subsequent ACUITY: 2 days PAIN SCORE: Non-responsive. LOCATION: Bilateral chest FINDINGS: There is patchy airspace disease in the lungs similar to August 23. Endotracheal tube and nasogast stanley tube present. No effusion. No pneumothorax. CONCLUSION: 1. Patchy bilateral air space disease. Interval extubation. Findings similar to August 23. Ramin Albert MD on August 24, 2017 at 6:29 Board Certified Radiologist. This report was verified electronically.
[2017-08-24 07:29] LABS: BANDS 43 % (0-6); EOSINOPHILS 3 % (0-4); NEUTROPHIL # MANUAL DIFF 9.5 TH/MM3 (1.8-7.7); POLYS (SEG NEUTROPHILS) 48 % (16-70); WBC DIFF SAMPLE 100
[2017-08-24 07:30] LABS: PLATELET ESTIMATE SMEAR LOW (NORMAL); PLATELET MORPHOLOGY NORMAL (NORMAL); SCAN/DIFF FINAL DIFF MANUAL
[2017-08-24] MEDS: RESP: ALBUTEROL 2.5 MG/IPRATROPIUM 0.5 MG NEB (SCH) NEB ×3 (08:29→20:08)
[2017-08-24] MEDS: DIVALPROEX SODIUM E.R. 250 MG TAB PO SCH (08:38)
[2017-08-24] MEDS: GABAPENTIN 300 MG CAP PO SCH ×2 (08:38→20:42)
[2017-08-24] MEDS: DOCUSATE SODIUM 50 MG/SENNA 8.6 MG TAB PO SCH ×2 (08:38→20:43)
[2017-08-24] MEDS: LACTULOSE SYRUP 20 GM/30 ML CUP PO SCH (08:38)
[2017-08-24] MEDS: FAMOTIDINE 20 MG TAB PO SCH ×2 (08:38→20:43)
[2017-08-24] MEDS: SODIUM CHLORIDE 0.9% FLUSH 10 ML FLUSH IV FLUSH SCH ×2 (08:39→20:43)
[2017-08-24] MEDS: BACITRACIN TOP OINT 15 GM TUBE TOPICAL SCH (09:00)
[2017-08-24] MEDS ORDERED: LIDOCAINE HCL 1% 20 ML VIAL INFIL ONE (09:30)
[2017-08-24] MEDS: oxyCODONE/ACETAMINOPHEN 10 MG/325 MG TAB PO SCH ×2 (10:00→20:42)
[2017-08-24] MEDS ORDERED: ALPRAZolam 1 MG TAB PO PRN (10:00)
[2017-08-24] MEDS: ATENOLOL 50 MG TAB PO SCH (10:00)
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
[2017-08-24] MEDS ORDERED: LIDOCAINE HCL 1% 50 ML VIAL ONE (10:38)
[2017-08-24] MEDS ORDERED: WALKER WHEELS/F1 MIS (16:54)
[2017-08-24] MEDS: ENOXAPARIN SODIUM 40 MG/0.4 ML SYRINGE SQ SCH (17:58)
[2017-08-24] MEDS: KETOROLAC TROMETHAMINE 30 MG/ML (IVP) VIAL IV PUSH PRN (17:58)
[2017-08-25] VITALS (11 sets, daily range): BP systolic 105–142; BP diastolic 55–86; PULSE 90–112; RESP 15–21; TEMP 97.5–99.5; O2SAT 96–98
[2017-08-25] MEDS: RESP: ALBUTEROL 2.5 MG/IPRATROPIUM 0.5 MG NEB (PRN) NEB (03:31)
[2017-08-25 05:18] LABS: AUTOMATED NEUTROPHIL # 8.8 TH/MM3 (1.8-7.7); BASOPHIL % 0.2 % (0.0-2.0); EOSINOPHIL # 0.2 TH/MM3 (0-0.4); EOSINOPHIL % 2.3 % (0.0-4.0); HEMATOCRIT 32.4 % (39.0-51.0); HEMO FLAGS DIFF FINAL; LYMPH % 7.4 % (9.0-44.0); LYMPHOCYTE # 0.8 TH/MM3 (1.0-4.8); MEAN CELL VOLUME 94.4 FL (80.0-100.0); MEAN CORPUSCULAR HEMOGLOBIN 31.4 PG (27.0-34.0); MEAN CORPUSCULAR HGB CONC 33.3 % (32.0-36.0); MONO % 4.3 % (0.0-8.0); NEUT % 85.8 % (16.0-70.0); PLATELET COUNT 100 TH/MM3 (150-450); RED BLOOD COUNT 3.44 MIL/MM3 (4.50-5.90); RED CELL DISTRIBUTION WIDTH 13.5 % (11.6-17.2); WHITE BLOOD COUNT 10.2 TH/MM3 (4.0-11.0)
[2017-08-25 05:47] LABS: BICARBONATE 28.5 MEQ/L (21.0-32.0); POTASSIUM 3.8 MEQ/L (3.5-5.1)
[2017-08-25] MEDS: PIPERACIL-TAZO 4.5 GM PREMIX 100 ML IV SCH ×4 (06:00→23:52)
[2017-08-25] MEDS: BACITRACIN TOP OINT 15 GM TUBE TOPICAL SCH (08:13)
[2017-08-25] MEDS: DIVALPROEX SODIUM E.R. 250 MG TAB PO SCH (08:14)
[2017-08-25] MEDS: DOCUSATE SODIUM 50 MG/SENNA 8.6 MG TAB PO SCH ×2 (08:14→20:06)
[2017-08-25] MEDS: FAMOTIDINE 20 MG TAB PO SCH ×2 (08:15→20:06)
[2017-08-25] MEDS: GABAPENTIN 300 MG CAP PO SCH ×2 (08:15→20:05)
[2017-08-25] MEDS: ATENOLOL 50 MG TAB PO SCH (08:15)
[2017-08-25] MEDS: LACTULOSE SYRUP 20 GM/30 ML CUP PO SCH (08:16)
[2017-08-25] MEDS: oxyCODONE/ACETAMINOPHEN 10 MG/325 MG TAB PO SCH ×2 (08:16→20:06)
[2017-08-25] MEDS: RESP: ALBUTEROL 2.5 MG/IPRATROPIUM 0.5 MG NEB (SCH) NEB ×3 (08:20→20:21)
[2017-08-25] MEDS: SODIUM CHLORIDE 0.9% FLUSH 10 ML FLUSH IV FLUSH SCH ×2 (08:21→21:00)
[2017-08-25] MEDS: ALPRAZolam 1 MG TAB PO SCH ×2 (13:43→21:08)
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
[2017-08-25] MEDS: ENOXAPARIN SODIUM 40 MG/0.4 ML SYRINGE SQ SCH (18:00)
[2017-08-25] MEDS ORDERED: SENN1TAB PO (21:11)
[2017-08-26] VITALS (8 sets, daily range): BP systolic 123–175; BP diastolic 57–85; PULSE 72–97; RESP 18–19; TEMP 97.3–98.7; O2SAT 92–100
[2017-08-26] MEDS: RESP: ALBUTEROL 2.5 MG/IPRATROPIUM 0.5 MG NEB (PRN) NEB (00:12)
[2017-08-26] MEDS: KETOROLAC TROMETHAMINE 30 MG/ML (IVP) VIAL IV PUSH PRN (00:12)
[2017-08-26] MEDS: ALPRAZolam 1 MG TAB PO SCH ×3 (05:10→20:29)
[2017-08-26] MEDS: PIPERACIL-TAZO 4.5 GM PREMIX 100 ML IV SCH ×2 (05:11→11:02)
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
[2017-08-26] MEDS: RESP: ALBUTEROL 2.5 MG/IPRATROPIUM 0.5 MG NEB (SCH) NEB ×4 (07:24→19:47)
[2017-08-26] MEDS: ATENOLOL 50 MG TAB PO SCH (08:47)
[2017-08-26] MEDS: FAMOTIDINE 20 MG TAB PO SCH ×2 (08:48→20:29)
[2017-08-26] MEDS: DOCUSATE SODIUM 50 MG/SENNA 8.6 MG TAB PO SCH ×2 (08:48→20:29)
[2017-08-26] MEDS: BACITRACIN TOP OINT 15 GM TUBE TOPICAL SCH (08:48)
[2017-08-26] MEDS: oxyCODONE/ACETAMINOPHEN 10 MG/325 MG TAB PO SCH ×2 (08:48→20:28)
[2017-08-26] MEDS: DIVALPROEX SODIUM E.R. 250 MG TAB PO SCH (08:48)
[2017-08-26] MEDS: LACTULOSE SYRUP 20 GM/30 ML CUP PO SCH (08:48)
[2017-08-26] MEDS: GABAPENTIN 300 MG CAP PO SCH ×2 (08:48→20:29)
[2017-08-26] MEDS: SODIUM CHLORIDE 0.9% FLUSH 10 ML FLUSH IV FLUSH SCH ×2 (08:49→20:28)
[2017-08-26 09:55] LABS: AUTOMATED NEUTROPHIL # 5.9 TH/MM3 (1.8-7.7); BASOPHIL % 0.4 % (0.0-2.0); EOSINOPHIL # 0.2 TH/MM3 (0-0.4); EOSINOPHIL % 2.4 % (0.0-4.0); HEMATOCRIT 31.2 % (39.0-51.0); HEMO FLAGS DIFF FINAL; LYMPH % 10.8 % (9.0-44.0); LYMPHOCYTE # 0.8 TH/MM3 (1.0-4.8); MEAN CELL VOLUME 93.6 FL (80.0-100.0); MEAN CORPUSCULAR HEMOGLOBIN 31.8 PG (27.0-34.0); MONO % 9.3 % (0.0-8.0); NEUT % 77.1 % (16.0-70.0); PLATELET COUNT 116 TH/MM3 (150-450); RED BLOOD COUNT 3.33 MIL/MM3 (4.50-5.90); RED CELL DISTRIBUTION WIDTH 13.1 % (11.6-17.2); WHITE BLOOD COUNT 7.7 TH/MM3 (4.0-11.0)
[2017-08-26 10:17] LABS: BICARBONATE 30.9 MEQ/L (21.0-32.0); POTASSIUM 3.5 MEQ/L (3.5-5.1)
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
[2017-08-26] MEDS ORDERED: LEVOFLOXACIN 500 MG PREMIX INJ 100 ML IV SCH (13:00)
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
[2017-08-26] MEDS ORDERED: CEFEPIME INJ 1,000 MG in SODIUM CHLORIDE 0.9% INJ 100 ML IV SCH (14:00)
[2017-08-26] MEDS: methylPREDNISolone SOD SUCC 40 MG/1 ML VIAL IV SCH ×2 (14:09→22:36)
[2017-08-26] MEDS: metroNIDAZOLE 500 MG TAB PO SCH ×2 (14:46→22:36)
[2017-08-26] MEDS: ENOXAPARIN SODIUM 40 MG/0.4 ML SYRINGE SQ SCH (17:23)
[2017-08-26] MEDS: SUMAtriptan SUCCINATE 25 MG TAB PO PRN (17:44)
[2017-08-27] VITALS (7 sets, daily range): BP systolic 129–148; BP diastolic 65–74; PULSE 58–95; RESP 18–21; TEMP 97.3–98.3; O2SAT 94–98
[2017-08-27] MEDS: metroNIDAZOLE 500 MG TAB PO SCH ×3 (04:57→20:33)
[2017-08-27] MEDS: ALPRAZolam 1 MG TAB PO SCH ×3 (04:57→20:33)
[2017-08-27] MEDS: methylPREDNISolone SOD SUCC 40 MG/1 ML VIAL IV SCH ×3 (04:57→20:33)
--- NOTE | 2017-08-27 06:22 | RADRPT ---
EXAM DATE/TIME: 08/27/2017 05:42 [facility] COMPARISON: CHEST SINGLE AP, August 26, 2017, 6:15. INDICATIONS : Shortness of breath and chest pain. MEDICAL HISTORY : Hypertension. Cerebrovascular disease. Seizures SURGICAL HISTORY : Appendectomy. Inguinal Hernia Repair ENCOUNTER: Subsequent ACUITY: 4 - 6 days PAIN SCORE: 10/10 LOCATION: chest FINDINGS: A single view of the chest demonstrates scattered airspace disease in the lungs, improved from [place] . No new infiltrate or effusion. Mildly tortuous aorta. No pneumothorax. CONCLUSION: 1. Scattered airspace disease in the lungs, improved from August 26. Ramin Albert MD on August 27, 2017 at 6:20 Board Certified Radiologist. This report was verified electronically.
[2017-08-27 07:23] LABS: AUTOMATED NEUTROPHIL # 4.2 TH/MM3 (1.8-7.7); BASOPHIL % 0.1 % (0.0-2.0); HEMATOCRIT 30.9 % (39.0-51.0); LYMPHOCYTE # 0.6 TH/MM3 (1.0-4.8); MEAN CELL VOLUME 92.7 FL (80.0-100.0); MEAN CORPUSCULAR HEMOGLOBIN 31.6 PG (27.0-34.0); MEAN CORPUSCULAR HGB CONC 34.1 % (32.0-36.0); MONO % 5.5 % (0.0-8.0); NEUT % 83.4 % (16.0-70.0); PLATELET COUNT 125 TH/MM3 (150-450); RED BLOOD COUNT 3.33 MIL/MM3 (4.50-5.90); RED CELL DISTRIBUTION WIDTH 12.9 % (11.6-17.2)
[2017-08-27 07:27] LABS: HEMO FLAGS AUTO DIFF
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
[2017-08-27 07:46] LABS: ALT (GPT) 13 U/L (12-78); ANION GAP 4 MEQ/L (5-15); AST (GOT) 16 U/L (15-37); BICARBONATE 30.6 MEQ/L (21.0-32.0); BLOOD UREA NITROGEN 15 MG/DL (7-18); CHLORIDE 109 MEQ/L (98-107); GLOMERULAR FILTRATION RATE 66 ML/MIN (>89); POTASSIUM 3.8 MEQ/L (3.5-5.1); SODIUM (NA) 144 MEQ/L (136-145)
[2017-08-27 07:54] LABS: ALKALINE PHOSPHATASE 53 U/L (45-117); TOTAL BILIRUBIN ADULT 0.4 MG/DL (0.2-1.0)
[2017-08-27] MEDS: RESP: ALBUTEROL 2.5 MG/IPRATROPIUM 0.5 MG NEB (SCH) NEB ×4 (08:10→20:47)
[2017-08-27] MEDS: DIVALPROEX SODIUM E.R. 250 MG TAB PO SCH (08:56)
[2017-08-27] MEDS: ATENOLOL 50 MG TAB PO SCH (08:56)
[2017-08-27] MEDS: FAMOTIDINE 20 MG TAB PO SCH ×2 (08:57→20:33)
[2017-08-27] MEDS: LACTULOSE SYRUP 20 GM/30 ML CUP PO SCH (08:57)
[2017-08-27] MEDS: DOCUSATE SODIUM 50 MG/SENNA 8.6 MG TAB PO SCH ×2 (08:57→20:35)
[2017-08-27] MEDS: oxyCODONE/ACETAMINOPHEN 10 MG/325 MG TAB PO SCH ×2 (08:57→20:34)
[2017-08-27] MEDS: GABAPENTIN 300 MG CAP PO SCH ×2 (08:57→20:34)
[2017-08-27] MEDS: SODIUM CHLORIDE 0.9% FLUSH 10 ML FLUSH IV FLUSH SCH ×2 (08:58→22:33)
[2017-08-27 08:59] LABS: BANDS 5 % (0-6); MYELOCYTES 1 % (0-0); NEUTROPHIL # MANUAL DIFF 4.5 TH/MM3 (1.8-7.7); POLYS (SEG NEUTROPHILS) 83 % (16-70); WBC DIFF SAMPLE 100
[2017-08-27 09:00] LABS: PLATELET ESTIMATE SMEAR LOW (NORMAL); PLATELET MORPHOLOGY NORMAL (NORMAL); SCAN/DIFF FINAL DIFF MANUAL
[2017-08-27] MEDS: BACITRACIN TOP OINT 15 GM TUBE TOPICAL SCH (09:00)
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
[2017-08-27] MEDS: LEVOFLOXACIN 750 MG TAB PO SCH (13:16)
[2017-08-27] MEDS: ENOXAPARIN SODIUM 40 MG/0.4 ML SYRINGE SQ SCH (18:00)
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
[2017-08-27] MEDS: BUDESONIDE-FORMOTEROL 160/4.5 MCG INHALER INH SCH (22:32)
[2017-08-28] VITALS (8 sets, daily range): BP systolic 129–166; BP diastolic 59–95; PULSE 52–67; RESP 17–20; TEMP 97.7–98.8; O2SAT 95–98
[2017-08-28] MEDS: RESP: ALBUTEROL 2.5 MG/IPRATROPIUM 0.5 MG NEB (PRN) NEB (04:01)
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
[2017-08-28] MEDS: ALPRAZolam 1 MG TAB PO SCH ×3 (06:11→21:14)
[2017-08-28] MEDS: metroNIDAZOLE 500 MG TAB PO SCH ×3 (06:11→21:16)
[2017-08-28] MEDS: methylPREDNISolone SOD SUCC 40 MG/1 ML VIAL IV SCH ×2 (06:11→13:02)
[2017-08-28 06:26] LABS: HEMATOCRIT 30.9 % (39.0-51.0); MEAN CELL VOLUME 92.8 FL (80.0-100.0); MEAN CORPUSCULAR HEMOGLOBIN 31.7 PG (27.0-34.0); MEAN CORPUSCULAR HGB CONC 34.2 % (32.0-36.0); PLATELET COUNT 161 TH/MM3 (150-450); RED BLOOD COUNT 3.33 MIL/MM3 (4.50-5.90); RED CELL DISTRIBUTION WIDTH 13.5 % (11.6-17.2); REVIEW FLAG FINAL; WHITE BLOOD COUNT 7.7 TH/MM3 (4.0-11.0)
[2017-08-28 06:53] LABS: BICARBONATE 29.1 MEQ/L (21.0-32.0); POTASSIUM 3.9 MEQ/L (3.5-5.1)
[2017-08-28] MEDS ORDERED: BISACODYL 10 MG SUPP RECTAL ONE (07:30)
[2017-08-28] MEDS ORDERED: BISACODYL EC 5 MG TABEC PO ONE (07:30)
[2017-08-28] MEDS: ATENOLOL 50 MG TAB PO SCH (08:30)
[2017-08-28] MEDS: FAMOTIDINE 20 MG TAB PO SCH ×2 (08:30→21:14)
[2017-08-28] MEDS: oxyCODONE/ACETAMINOPHEN 10 MG/325 MG TAB PO SCH ×2 (08:30→21:15)
[2017-08-28] MEDS: LEVOFLOXACIN 750 MG TAB PO SCH (08:30)
[2017-08-28] MEDS: GABAPENTIN 300 MG CAP PO SCH ×2 (08:30→21:14)
[2017-08-28] MEDS: DIVALPROEX SODIUM E.R. 250 MG TAB PO SCH (08:31)
[2017-08-28] MEDS: DOCUSATE SODIUM 50 MG/SENNA 8.6 MG TAB PO SCH ×2 (08:32→21:14)
[2017-08-28] MEDS: LACTULOSE SYRUP 20 GM/30 ML CUP PO SCH (08:36)
[2017-08-28] MEDS: SODIUM CHLORIDE 0.9% FLUSH 10 ML FLUSH IV FLUSH SCH ×2 (08:37→21:18)
[2017-08-28] MEDS: BACITRACIN TOP OINT 15 GM TUBE TOPICAL SCH (09:00)
[2017-08-28] MEDS: RESP: ALBUTEROL 2.5 MG/IPRATROPIUM 0.5 MG NEB (SCH) NEB ×4 (09:00→19:52)
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
[2017-08-28] MEDS: BUDESONIDE-FORMOTEROL 160/4.5 MCG INHALER INH SCH ×2 (13:00→21:17)
[2017-08-28] MEDS: ENOXAPARIN SODIUM 40 MG/0.4 ML SYRINGE SQ SCH (16:46)
[2017-08-28] MEDS: SUMAtriptan SUCCINATE 25 MG TAB PO PRN (22:02)
[2017-08-29 00:27] VITALS: BP 165/74; PULSE 54; RESP 18; TEMP 98.2; O2SAT 98
[2017-08-29 04:45] VITALS: BP 157/72; PULSE 56; RESP 18; TEMP 98.1; O2SAT 94
[2017-08-29] MEDS: RESP: ALBUTEROL 2.5 MG/IPRATROPIUM 0.5 MG NEB (PRN) NEB (05:22)
[2017-08-29 05:24] VITALS: O2SAT 98
[2017-08-29] MEDS: ALPRAZolam 1 MG TAB PO SCH (05:42)
[2017-08-29] MEDS: metroNIDAZOLE 500 MG TAB PO SCH (05:42)
[2017-08-29 08:03] VITALS: BP 155/75; PULSE 55; RESP 20; TEMP 97.8; O2SAT 97
[2017-08-29] MEDS ORDERED: methylPREDNISolone SOD SUCC 40 MG/1 ML VIAL IV SCH (09:00)
[2017-08-29 09:31] VITALS: O2SAT 97
[2017-08-29] MEDS: RESP: ALBUTEROL 2.5 MG/IPRATROPIUM 0.5 MG NEB (SCH) NEB ×2 (09:31→11:24)
[2017-08-29] MEDS: GABAPENTIN 300 MG CAP PO SCH (09:49)
[2017-08-29] MEDS: FAMOTIDINE 20 MG TAB PO SCH (09:49)
[2017-08-29] MEDS: DIVALPROEX SODIUM E.R. 250 MG TAB PO SCH (09:49)
[2017-08-29] MEDS: DOCUSATE SODIUM 50 MG/SENNA 8.6 MG TAB PO SCH (09:49)
[2017-08-29] MEDS: LEVOFLOXACIN 750 MG TAB PO SCH (09:49)
[2017-08-29] MEDS: oxyCODONE/ACETAMINOPHEN 10 MG/325 MG TAB PO SCH (09:49)
[2017-08-29] MEDS: ATENOLOL 50 MG TAB PO SCH (09:49)
[2017-08-29] MEDS ORDERED: PERC5TAB12 PO (11:35)
[2017-08-29] MEDS ORDERED: LEVA750T9 PO (11:35)
[2017-08-29] MEDS ORDERED: SYMB160A INH (11:35)
[2017-08-29] MEDS ORDERED: METR-1 PO (11:35)
[2017-08-29] MEDS ORDERED: PRED10 PO (11:36)
[2017-08-29 11:45] VITALS: BP 129/63; PULSE 82; RESP 20; TEMP 98.1; O2SAT 97
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
== END 2017-08-29 14:04 | disposition home health service (06) | DRG 208 ==
LOC: NEPI 14:33 → NEDA 14:50 → EDBD 14:50 → MERGE 14:50 → N03A 15:24 → N05B 08-25 17:53
PROVIDERS: ADMIT Surgery; ATTEND Surgery
PROC: 0BH17EZ Insertion of Endotracheal Airway into Trachea, Via Natural or Artificial Opening (ICD-10-PCS; principal; 2017-08-22)
PROC: 5A1935Z Respiratory Ventilation, Less than 24 Consecutive Hours (ICD-10-PCS; 2017-08-22)
PROC: 0HQGXZZ Repair Left Hand Skin, External Approach (ICD-10-PCS; 2017-08-24)
DX: J69.0 Pneumonitis due to inhalation of food and vomit (principal); J96.01 Acute respiratory failure with hypoxia; G93.40 Encephalopathy, unspecified; G40.909 Epilepsy, unspecified, not intractable, without status epilepticus; I10 Essential (primary) hypertension; R53.1 Weakness; S61.412A Laceration without foreign body of left hand, initial encounter; B96.89 Other specified bacterial agents as the cause of diseases classified elsewhere; Z86.73 Personal history of transient ischemic attack (TIA), and cerebral infarction without residual deficits; V28.0XXA Motorcycle driver injured in noncollision transport accident in nontraffic accident, initial encounter; Y92.828 Other wilderness area as the place of occurrence of the external cause; Z88.5 Allergy status to narcotic agent
CPT/HCPCS: 31500; 36600; 43753; 70450; 71010; 71260; 72125; 72170; 73060; 74177; 76937; 80048; 80053; 80164; 80307; 81001; 82435; 82565; 82805; 82947; 84100; 84132; 84155; 84295; 84520; 85007; 85025; 85027; 85610; 85730; 86850; 86900; 86901; 87070; 87077; 87186; 87205; 87641; 90471; 94002; 94150; 94640; 94664; 94667; 94668; 95819; 96374; 96375; 99291; G0390; J0690; J1650; J1885; J1940; J1953; J1956; J2310; J2405; J2543; J2920; J3010; J3370; J3420; J7030; J7050; Q9967

== ENCOUNTER 2017-10-11 12:29 | Emergency (ER) | payer OTHER ==
[~2017-10-11 12:29] MED LIST changes: +BUTO10SO NASAL; +DIVA250ER PO; +GABA300C5 PO; +LEVA750T9 PO; +METR-1 PO; +PERC10TA27 PO; +PERC5TAB12 PO; +PRED10 PO; +SENN1TAB PO; +SYMB160A INH; +VITAMIN B-12 IM; +WALKER WHEELS/F1 MIS
[2017-10-11] MEDS ORDERED: GADODIAMIDE PF 287 MG/ML 5 ML VIAL (for RAD MRI) IVCONTRAST ONE (12:30)
[2017-10-11 12:33] VITALS: BP 132/81; PULSE 99; RESP 18; TEMP 98.4; O2SAT 97
[2017-10-11 13:30] LABS: AUTOMATED NEUTROPHIL # 4.5 TH/MM3 (1.8-7.7); BASOPHIL # 0.1 TH/MM3 (0-0.2); BASOPHIL % 0.7 % (0.0-2.0); EOSINOPHIL # 0.1 TH/MM3 (0-0.4); EOSINOPHIL % 1.3 % (0.0-4.0); HEMATOCRIT 48.2 % (39.0-51.0); LYMPH % 36.1 % (9.0-44.0); MEAN CELL VOLUME 91.4 FL (80.0-100.0); MEAN CORPUSCULAR HEMOGLOBIN 30.5 PG (27.0-34.0); MEAN CORPUSCULAR HGB CONC 33.4 % (32.0-36.0); MONO % 8.2 % (0.0-8.0); NEUT % 53.7 % (16.0-70.0); PLATELET COUNT 201 TH/MM3 (150-450); RED BLOOD COUNT 5.27 MIL/MM3 (4.50-5.90); RED CELL DISTRIBUTION WIDTH 13.1 % (11.6-17.2); WHITE BLOOD COUNT 8.4 TH/MM3 (4.0-11.0)
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
[2017-10-11 13:37] LABS: APTT (PATIENT) 25.2 SEC (24.3-30.1); INTERNATIONAL NORMALIZED RATIO 0.9 RATIO; PROTHROMBIN TIME - PATIENT 10.2 SEC (9.8-11.6)
[2017-10-11 13:42] LABS: HEMO FLAGS AUTO DIFF
[2017-10-11 14:00] LABS: BLOOD, URINE NEG (NEG); GLUCOSE,URINE NEG (NEG); HYALINE CAST, URINE 3 /lpf (RARE); KETONE, URINE NEG (NEG); MUCUS URINE MANY /lpf (OCC); NITRITE,URINE NEG (NEG); PH, URINE 5.5 (5.0-8.5); SQUAMOUS EPITHELIAL CELL URINE 1 /hpf (0-5); URINE COLOR YELLOW (YELLW/STRAW)
[2017-10-11 14:01] LABS: COMMENT (UR) CATH-CULT NOT IND; CULTURE IF INDICATED CATH CULTURE NOT IND
[2017-10-11 14:10] LABS: SCAN/DIFF AUTO DIFF CONFIRMED
--- NOTE | 2017-10-11 14:28 | RADRPT ---
EXAM DATE/TIME: 10/11/2017 14:02 [facility] COMPARISON: No previous studies available for comparison. INDICATIONS : History of pneumonia, short of breath, slurred speech, congestion. MEDICAL HISTORY : Pneumonia SURGICAL HISTORY : None. ENCOUNTER: Initial ACUITY: 3 days PAIN SCORE: 0/10 LOCATION: Bilateral chest FINDINGS: PA and lateral views of the chest demonstrate the lungs to be symmetrically aerated without evidence of mass, infiltrate or effusion. The cardiomediastinal contours are unremarkable. Osseous structure s are intact. CONCLUSION: No acute disease. Thierno Carballo Jr., MD on October 11, 2017 at 14:26 Board Certified Radiologist. This report was verified electronically.
[2017-10-11 14:30] LABS: ALKALINE PHOSPHATASE 65 U/L (45-117); ALT (GPT) 39 U/L (12-78); ANION GAP 6 MEQ/L (5-15); AST (GOT) 19 U/L (15-37); BICARBONATE 25.4 MEQ/L (21.0-32.0); BLOOD UREA NITROGEN 14 MG/DL (7-18); CHLORIDE 103 MEQ/L (98-107); GLOMERULAR FILTRATION RATE 61 ML/MIN (>89); POTASSIUM 4.7 MEQ/L (3.5-5.1); SODIUM (NA) 134 MEQ/L (136-145); TOTAL BILIRUBIN ADULT 0.3 MG/DL (0.2-1.0)
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
[2017-10-11] MEDS ORDERED: KETOROLAC TROMETHAMINE 30 MG/ML (IVP) VIAL IV PUSH ONE (17:30)
--- NOTE | 2017-10-12 14:28 | EKG ---
Date Performed: 10/11/2017 Time Performed: 14:25:37 PTAGE: 52 years EKG: Sinus rhythm MINIMAL VOLTAGE CRITERIA FOR LVH, CONSIDER NORMAL VARIANT BORDERLINE ECG PREVIOUS TRACING : 01/24/2017 17.12 Compared to prior tracing no significant change DOCTOR: Jayy Sosa Interpretating Date/Time 10/12/2017 14:21:33
== END 2017-10-11 17:45 | disposition home or self-care (01) ==
LOC: NEPC 12:29
DX: R47.81 Slurred speech (principal); R94.31 Abnormal electrocardiogram [ECG] [EKG]; R56.9 Unspecified convulsions; R41.82 Altered mental status, unspecified
CPT/HCPCS: 70450; 70553; 71020; 80053; 80164; 81001; 82140; 84443; 85025; 85610; 85730; 93005; 99285; A9579

== ENCOUNTER 2018-05-15 19:34 | Emergency (ER) | payer OTHER ==
[~2018-05-15 19:34] MED LIST changes: -DEPA500T3 PO; -GABA300C5 PO; -HYDR-3533 PO; -LEVA750T9 PO; -METR-1 PO; -NAPR500 PO; -PERC5TAB12 PO; -PRED10 PO; -SENN1TAB PO; -VITAMIN B-12 IM; -WALKER WHEELS/F1 MIS
[2018-05-15 19:42] VITALS: BP 133/75; PULSE 73; RESP 18; TEMP 97.8; O2SAT 96
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
[2018-05-15] MEDS ORDERED: KLON2TAB PO (21:27)
[2018-05-15] MEDS ORDERED: CLON2TAB PO (21:27)
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
== END 2018-05-15 23:11 | disposition home or self-care (01) ==
LOC: NEPD 19:34
DX: S46.911A Strain of unspecified muscle, fascia and tendon at shoulder and upper arm level, right arm, initial encounter (principal); S56.911A Strain of unspecified muscles, fascia and tendons at forearm level, right arm, initial encounter; S60.221A Contusion of right hand, initial encounter; S80.02XA Contusion of left knee, initial encounter; V89.2XXA Person injured in unspecified motor-vehicle accident, traffic, initial encounter; R07.89 Other chest pain; G89.29 Other chronic pain; M54.2 Cervicalgia; F41.9 Anxiety disorder, unspecified; I10 Essential (primary) hypertension
CPT/HCPCS: 71046; 73030; 73080; 73130; 73560; 99284